=== PATIENT | male | born 1990 | race Caucasian/White ===

== ENCOUNTER 2018-06-22 08:30 | Outpatient (RCR) | payer BC, SELFPAY ==
--- NOTE | 2018-05-31 13:16 | HMH.OTOPEV ---
OT Inpatient Evaluation Rehab OT Outpatient Eval Start: 05/31/18 13:00 Freq: Status: Active Protocol: Document 05/31/18 13:01 TFRY (Rec: 05/31/18 13:15 TFRY [id number]) Electronically Signed By Ivory Alfred OT 05/31/18 13:01 Outpatient Therapy Subjective History Subjective History Patient seen this date for skilled occupational therapy evaluation for right small finger strain. Patient reported that he got his finger caught in a snake for a claim adjuster line one week ago. Seen by ortho on 05/30/18. Chief Complaint Pain Stiff Symptom Type Ache Sharp Symptoms Relieved By Rest/Positioning Symptoms Aggravated By Physical Activity Prior Functional Limitations None Current Functional Limitations Lifting Dressing Symptom Description Activity Dependent Level of pain today (0-10) 0 Pain scale - at its best (0-10) 0 Pain scale - at its worst (0-10) 10 Wrist/Hand Eval Finger Range of Motion Right Little Finger Finger ROM Limitations Pain Finger Metacarpophalangeal Flexion 45 Active Range of Motion (degrees) Finger Metacarpophalangeal Flexion 60 Passive Range of Motion (degrees) Finger Metacarpophalangeal Extension 0 Active Range of Motion (degrees) Finger Metacarpophalangeal Extension 0 Passive Range of Motion (degrees) Finger Proximal Interphalangeal Flexion 70 Active Range (degrees) Finger Proximal Interphalangeal Flexion 80 Passive Range (degrees) Finger Proximal Interphalangeal 0 Extension Active Range (degrees) Finger Proximal Interphalangeal 0 Extension Passive Range (degrees) Finger Distal Interphalangeal Flexion 55 Active Range of Motion (degrees) Finger Distal Interphalangeal Flexion 55 Passive Range Motion (degrees) Finger Distal Interphalangeal Extension 0 Active Range Motion (degrees) Finger Distal Interphalangeal Extension 0 Passive Range Motion (degrees) OT Outpatient Assessment Impairments Problems/Impairments Palpation Tenderness Impaired Range of Motion Impaired Lifting Impaired Dressing Impaired Work Activities Subjective C/O Pain Prognosis Rehab Potential Good Clinical Impression Consistent with Diagnosis Yes Short Term Goals Number of Weeks 2 Decreased Palpation Tenderness Yes: right little finger at
== END 2018-06-22 08:35 | disposition home or self-care (01) ==
LOC: OT 08:30
PROVIDERS: Visit Provider Orthopaedic Surgery
DX: S63.617A Unspecified sprain of left little finger, initial encounter (principal)
CPT/HCPCS: 97110; 97140; 97166

== ENCOUNTER → 2019-05-09 12:29 | Outpatient (CLI) | payer BC, SELFPAY | PROVIDERS: PCP Nurse Practitioner; Visit Provider Urology | DX: R00.2 Palpitations (principal); Z98.890 Other specified postprocedural states | CPT/HCPCS: 93306 ==

== ENCOUNTER 2019-11-14 20:24 | Emergency (ER) | payer BC, SELFPAY ==
[2019-11-14 20:33] VITALS: BP 149/97; PULSE 74; RESP 16; TEMP 36.6; O2SAT 96; BMI 27.1
--- NOTE | 2019-11-14 20:41 | CT_ITS ---
PROCEDURE: CT ABDOMEN PELVIS W CON CLINICAL INDICATION: dropped weight Blunt trauma with injury and pain, contusion/abrasion or hematoma following injury COMPARISON: No exams were available for comparison TECHNIQUE: IV Contrast: 75ML OPTIRAY 350 Oral Contrast None Axial images obtained with sagittal and coronal reformats. All CT scans at the facility use one or more dose reduction, viz: automated exposure control, ma/kV adjustment per patient size (including targeted exams where dose is matched to indication, i.e. head), or iterative reconstruction technique. FINDINGS: LOWER THORAX: No acute finding ABDOMEN & PELVIS: Status post cholecystectomy. The liver, spleen, adrenal glands, pancreas, and kidneys have an unremarkable appearance. No renal or ureteral calculi. There is faint increased density in the subcutaneous tissues of the anterior abdominal wall approximately 7 cm cephalad to the umbilicus and could be related to contusion. No intestinal obstruction or free air. No evidence of appendicitis. There is mild urinary bladder wall thickening which may be seen with incomplete distension, chronic outflow obstruction, or cystitis. Scattered small nodes are present in the mesenteries. No acute bony findings. Minimal amount of fluid noted in the pelvis. IMPRESSION: 1. There is mild urinary bladder wall thickening which may be seen with incomplete distension, chronic outflow obstruction, or cystitis. 2. Suspect subcutaneous soft tissue contusion anterior abdominal wall 3. Trace free fluid in the pelvis nonspecific Dictated by: Carlos Mcmullen MD 11/15/2019 06:29 Carlos Mcmullen MD in OV 11/15/2019 06:29
[2019-11-14 20:51] LABS: Basophils # 0.1 K/mm3 (0-0.2); Basophils % 0.9 % (0.1-2.0); Eosinophils # 0.2 K/mm3 (0.0-0.4); Eosinophils % 2.7 % (0.1-12.0); Hemoglobin 17.4 g/dL (14.1-18.0); Lymphocytes # 2.4 K/mm3 (0.7-4.5); Lymphocytes % 40.2 % (10-50); Mean Corpuscular HGB Conc 34.9 g/dL (31.8-35.4); Mean Corpuscular Hemoglobin 32.8 pg (27.0-31.2); Mean Corpuscular Volume 93.8 fl (80-94); Mean Platelet Volume 8.2 fl (7.4-10.4); Monocytes # 0.6 K/mm3 (0.1-1.0); Monocytes % 9.4 % (1.7-9.3); Neutrophils # 2.8 K/mm3 (1.8-7.8); Neutrophils % 46.8 % (37.0-80.0); Platelet Count 206 K/mm3 (142-424); Red Blood Count 5.33 M/mm3 (4.60-6.20); Red Cell Distribution Width 13.2 % (11.5-17.5)
[2019-11-14 21:01] LABS: Chloride 101 mmol/L (98-107); Sodium 140 mmol/L (136-145)
[2019-11-14 21:02] VITALS: BP 145/84; PULSE 63; RESP 17; O2SAT 97
[2019-11-14 21:02] LABS: Potassium 3.7 mmoL/L (3.5-5.1)
[2019-11-14 21:04] LABS: Alanine Aminotransferase 43 U/L (12-78); Albumin Level 4.6 g/dl (3.5-5.0); Albumin/Globulin Ratio 1.4 (1.1-1.8); Alkaline Phosphatase 67 U/L (38-126); Anion Gap 12.7 mEq/L (5-15); Aspartate Amino Transferase 47 U/L (17-59); Bilirubin,Total 0.5 mg/dl (0.2-1.3); Blood Urea Nitrogen 11 mg/dl (9-20); Calcium 10.1 mg/dl (8.4-10.2); Carbon Dioxide 30 mmol/L (22.0-30.0); Creatinine Clearance Estimated 117 mL/min (50-200); Estimated Glomerular Filt Rate 72 ml/min (>60); GFR (African American) 87 ML/MIN (>60); Globulin 3.2 g/dL (1.3-3.2); Glucose 105 mg/dl (74-100); Total Protein,Serum 7.8 g/dl (6.3-8.2)
[2019-11-14 21:47] VITALS: BP 136/85; PULSE 67; RESP 16; O2SAT 98
--- NOTE | 2019-11-14 22:12 | HMH.EDNVD ---
ED Disposition Clinical Impression: Abdominal pain Qualifiers: Abdominal location: epigastric Qualified Code(s): R10.13 - Epigastric pain Disposition: Home, Self-Care Condition on Discharge: Good Instructions: DI for Acute Abdomen Additional Instructions: call dr willams in am Referrals: Zo Argueta APRN [Primary Care Provider] - - Critical Care Critical Care Time: No Attestation: On 11/14/19, the high probability of a clinically significant, sudden or life threatening deterioration of the following system(s) required my full and direct attention, intervention and personal management. The time I documented below is in addition to time spent performing reported procedures but includes the following listed in this critical care notation. Medical Decision Making - Medical Records Medical records reviewed: Yes: I reviewed the patient's medical records. - Alex Inquiry Pt receiving controlled substance: No Vital Signs: 11/14/19 20:33 11/14/19 21:02 Temperature 97.9 F Temperature Source Oral Pulse Rate [Right Brachial] 74 63 Respiratory Rate 16 17 Blood Pressure [Right Arm] 149/97 H 145/84 H Blood Pressure Mean [Right Arm] 114 104 Blood Pressure Source [Right Arm] Automatic Cuff Automatic Cuff Blood Pressure Position [Right Arm] Sitting Sitting 02 Sat by Pulse Oximetry 96 97 Oxygen Delivery Method Room Air Room Air - Lab Data Lab results reviewed: Yes: I reviewed the patient's lab results. Lab Results 11/14/19 20:41: WBC 6.0, RBC 5.33, Hgb 17.4, Hct 50.0, MCV 93.8, MCH 32.8 H, MCHC 34.9, RDW 13.2, Plt Count 206, MPV 8.2, Neut % (Auto) 46.8, Lymph % (Auto) 40.2, Billings % (Auto) 9.4 H, Eos % (Auto) 2.7, Baso % (Auto) 0.9, Neut # (Auto) 2.8, Lymph # (Auto) 2.4, Billings # (Auto) 0.6, Eos # (Auto) 0.2, Baso # (Auto) 0.1 11/14/19 20:41: Sodium 140, Potassium 3.7, Chloride 101, Carbon Dioxide 30, Anion Gap 12.7, BUN 11, Creatinine 1.20, Estimated Creat Clear 117, Estimated GFR 72, Est GFR ( Amer) 87, Glucose 105 H, Calcium 10.1, Total Bilirubin 0.5, AST 47, ALT 43, Alkaline Phosphatase 67, Total Protein 7.8, Albumin 4.6, Globulin 3.2, Albumin/Globulin Ratio 1.4 Result diagrams: 11/14/19 20:41 11/14/19 20:41 Orders (Tests/Meds): ED MEDICATIONS Discontinued Medications Generic Name Dose Route Start Last Admin Trade Name Jaime PRN Reason Stop Dose Admin Ioversol 75 ml 11/14/19 21:44 11/14/19 21:46 Rad-Optiray 350 100ml Vial IV 11/14/19 21:45 75 ml ONCE ONE Administration Protocol Sodium Chloride 10 ml 11/14/19 21:44 11/14/19 21:46 Rad-Saline Flush 10ml Syringe IV 11/14/19 21:45 10 ml ONCE ONE Administration ORDERS Category Date Time Status CT abdomen pelvis w con Stat Cat Scan 11/14/19 20:41 Taken - CT Data CT Scan: Abdomen, Pelvis Time Received: 22:[address] Reviewed: Yes: I have viewed the radiologist's interpretation Preliminary Findings: Abnormal (see report ) - Physician Consults Physician Consulted: екатерина Reason -: Pt condition Nausea/Vomiting/Diarrhea HPI - General Chief complaint: Abdominal Pain Stated complaint: AO 0919 injured stomach Time Seen by Provider: 11/14/19 21:00 Mode of Arrival: Ambulatory Source of Information: Patient, Spouse, Medical Record Limitations: No Limitations Description of Symptoms (Recalled from ER Triage Doc. by RN): Patient reports he was lifting weights on wednesday and dropped 225lbs on his belly. Patient reports he has been ok since then but tonight after kicking around a soccer ball with his son, the pain came back and severe. Patient reports tenderness in the central part of his belly but denies any blood in his urine or stool. - History of Present Illness HPI Narrative: acute injury to upper abd as he dropped wt bar on abd - was worse today no fever and no vomiting - eating ok MD complaint: abdominal pain Onset (ago): day(s) Associated Abdominal Pain: Yes Location of pain: [facility]
[2019-11-14 22:39] VITALS: BP 149/91; PULSE 68; RESP 16; TEMP 36.8; O2SAT 98
[2019-11-14 23:09] LABS: Amylase 76 U/L (30-110); Lipase 91 U/L (23-300)
== END 2019-11-14 22:41 | disposition home or self-care (01) ==
PROVIDERS: Emergency Provider Emergency Medicine; PCP Nurse Practitioner
DX: S30.1XXA Contusion of abdominal wall, initial encounter (principal); W22.8XXA Striking against or struck by other objects, initial encounter; Y93.B3 Activity, free weights; Y92.89 Other specified places as the place of occurrence of the external cause; I10 Essential (primary) hypertension; R00.2 Palpitations; F17.210 Nicotine dependence, cigarettes, uncomplicated
CPT/HCPCS: 74177; 80053; 82150; 83690; 85025; 99283; Q9967

== ENCOUNTER 2020-08-28 17:25 | Emergency (ER) | payer BC, SELFPAY ==
[2020-08-28 17:25] VITALS: BP 140/90; PULSE 89; RESP 18; TEMP 37.1; O2SAT 95; BMI 27.8
--- NOTE | 2020-08-28 18:16 | HMH.EDUTC ---
[facility] Disposition Clinical Impression: Hematoma of lower limb Qualifiers: Encounter type: initial encounter Laterality: unspecified laterality Qualified Code(s): S80.10XA - Contusion of unspecified lower leg, initial encounter Open wound of leg Qualifiers: Encounter type: initial encounter Laterality: left Qualified Code(s): S81.802A - Unspecified open wound, left lower leg, initial encounter Disposition: Home, Self-Care Condition on Discharge: Good Instructions: DI for Hematoma (Bruise), DI for Open Laceration Additional Instructions: Keep the wound clean and dry. Keep a dressing on it if you are going to be getting it dirty. Watch the for signs of infection, such as worsening redness, swelling, drainage, fever. etc. Take tylenol or ibuprofen for pain. Follow up with your regular doctor. GO TO THE ER FOR ANY WORSENING SYMPTOMS OR CONCERNS. Prescriptions: Mupirocin [Bactroban 2% Ointment 22gm tube] 1 applicatio TP TID 7 Days #1 tube Transmission Status: Received by [facility] cephALEXin [cephALEXin 500mg capsule] 500 mg PO Q6H 10 Days #40 cap Transmission Status: Received by [facility] Referrals: Flo Bose MD [Primary Care Provider] - Time of Disposition: 18:28 Medical Decision Making - Medical Records Medical records reviewed: No: I reviewed the patient's medical records. - Alex Inquiry Pt receiving controlled substance: No Vital Signs: 08/28/20 17:25 08/28/20 18:18 Temperature 98.8 F 98.8 F Temperature Source Oral Pulse Rate 89 Pulse Rate [Right Brachial] 89 Respiratory Rate 18 18 Blood Pressure 140/90 Blood Pressure [Right Arm] 140/90 Blood Pressure Mean [Right Arm] 106 Blood Pressure Source [Right Arm] Automatic Cuff Blood Pressure Position [Right Arm] Sitting 02 Sat by Pulse Oximetry 95 Oxygen Delivery Method Room Air Orders (Tests/Meds): ORDERS Category Date Time Status Wound Culture and Gram Stain Stat Micro 08/28/20 18:[address] [facility] HPI - General Stated complaint: AO 08/16 injured L leg Time Seen by Provider: 08/28/20 17:40 Mode of Arrival: Ambulatory Source of Information: Patient Limitations: No Limitations Description of Symptoms (Recalled from Triage Doc. by RN): PATIENT REPORTS THAT HE HIT HIS LEFT LOWER LEG WITH GOLF CLUB APPROX 2 WEEKS AGO. HE STATES AREA AROUND THE WOUND BECAME SWOLLEN. YESTERDAY HIS WAS SQUEEZING ON THE AREA AND BROWN/OLD BLOOD AND BLOOD CLOTS STARTED DRAINING OUT OF OPEN AREA. OPEN AREA NOTED WITH SANGUINOUS DRAINAGE NOTED. HEENT Symptoms (Recalled from RN notes): No Resp Symptoms (Recalled from RN notes): No Skin Symptoms (Recalled from RN notes): Yes MS Symptoms (Recalled from RN notes): No Functional Status (Recalled from RN notes): WNL - History of Present Illness Provider Complaint: He accidentily hit himself on the left lower leg with a golf club around 2 weeks ago. He developed localized swelling and bruising in that area. He also recieved a small laceration at the site from the golf club. He states that earlier today the scab came off the laceration and some dark maroon blood with some clots came out of it. - Related Data Home Medications Medication Instructions Recorded Confirmed Omeprazole 40 mg PO DAILY 08/28/20 08/28/20 bisoproloL fumarate [Bisoprolol 5 mg PO DAILY 08/28/20 08/28/20 Fumarate] Previous Rx's Medication Instructions Recorded Mupirocin [Bactroban 2% Ointment 1 applicatio TP TID 7 Days #1 tube 08/28/20 22gm tube] cephALEXin [cephALEXin 500mg 500 mg PO Q6H 10 Days #40 cap 08/28/20 capsule] Allergies Allergy/AdvReac Type Severity Reaction Status Date / Time No Known Allergies Allergy Verified 05/01/20 10:55 - Worker's Comp Is this a Worker's Comp case?: No [facility] History - Hepatitis A Screen Drug use history?: No High risk sexual behaviors?: No History of sexually transmitted infection?: No Currently employed?: No C
[2020-08-28 18:18] VITALS: BP 140/90; PULSE 89; RESP 18; TEMP 37.1; O2SAT 95
--- NOTE | 2020-08-28 18:23 | PC.NURSE ---
NEOSPORIN, NON-STICK DRESSING, GAUZE, AND JEANNE WRAP APPLIED TO OPEN AREA ON LEFT LOWER LEG AT THIS TIME
== END 2020-08-28 18:36 | disposition home or self-care (01) ==
PROVIDERS: Emergency Provider Nurse Practitioner Family; PCP Family Medicine
DX: S81.802A Unspecified open wound, left lower leg, initial encounter (principal); W22.8XXA Striking against or struck by other objects, initial encounter; Y92.89 Other specified places as the place of occurrence of the external cause
CPT/HCPCS: 87070; 87077; 87186; 87205; 99202; G0463

== ENCOUNTER 2020-10-19 09:09 | Emergency (ER) | payer BC, SELFPAY ==
[2020-10-19 09:37] VITALS: BP 132/85; PULSE 63; RESP 18; TEMP 36.9; O2SAT 96; BMI 27.8
[2020-10-19 09:48] VITALS: BP 128/85; PULSE 72; RESP 18; TEMP 36.9
--- NOTE | 2020-10-19 10:00 | HMH.EDUTC ---
[facility] Disposition Clinical Impression: Viral syndrome, Exposure to COVID-19 virus Disposition: Home, Self-Care Condition on Discharge: Good Instructions: Preventing the Spread of Coronavirus Discharge Instructions Additional Instructions: Drink plenty of fluids. Take tylenol or ibuprofen for pain or fever. Follow up with your regular doctor. GO TO THE ER FOR ANY WORSENING SYMPTOMS Quarantine until you know the results of your covid-19 test. If it is positive, the health department should call you and give you further instructions about your length of Quarantine and other things. Notify your school or workplace of your results and follow their instructions regarding return to work/school. Prescriptions: Ondansetron [Zofran 4mg ODT] 4 mg PO Q8HP PRN #20 tab.rapdis PRN Reason: Nausea Transmission Status: Received by [facility] Benzonatate [Tessalon Perle 100mg Cap] 100 mg PO TIDP PRN #30 cap PRN Reason: Cough Transmission Status: Received by [facility] Referrals: Flo Bose MD [Primary Care Provider] - Time of Disposition: 10:04 Medical Decision Making - Medical Records Medical records reviewed: No: I reviewed the patient's medical records. - Alex Inquiry Pt receiving controlled substance: No Vital Signs: 10/19/20 09:37 10/19/20 09:48 Temperature 98.5 F 98.5 F Temperature Source Oral Pulse Rate 72 Pulse Rate [Left] 63 Respiratory Rate 18 18 Blood Pressure 128/85 Blood Pressure [Right Arm] 132/85 Blood Pressure Mean [Right Arm] 100 02 Sat by Pulse Oximetry 96 Orders (Tests/Meds): ORDERS Category Date Time Status Covid-19 Nasal PCR ([facility]) Routine Lab 10/19/20 09:43 Received [facility] HPI - General Stated complaint: covid test Time Seen by Provider: 10/19/20 10:01 Mode of Arrival: Ambulatory Source of Information: Patient Limitations: No Limitations Description of Symptoms (Recalled from Triage Doc. by RN): pt c/o a SARABIA, cough and sore throat. HEENT Symptoms (Recalled from RN notes): Yes (SARABIA and sore throat) Resp Symptoms (Recalled from RN notes): Yes (cough) Skin Symptoms (Recalled from RN notes): No MS Symptoms (Recalled from RN notes): No Functional Status (Recalled from RN notes): na - History of Present Illness Provider Complaint: He has thought that he has had covid-19 for the past 1 week, but he has not been tested. - Related Data Home Medications Medication Instructions Recorded Confirmed Omeprazole 40 mg PO DAILY 08/28/20 08/28/20 bisoproloL fumarate [Bisoprolol 5 mg PO DAILY 08/28/20 08/28/20 Fumarate] Previous Rx's Medication Instructions Recorded Mupirocin [Bactroban 2% Ointment 1 applicatio TP TID 7 Days #1 tube 08/28/20 22gm tube] cephALEXin [cephALEXin 500mg 500 mg PO Q6H 10 Days #40 cap 08/28/20 capsule] Benzonatate [Tessalon Perle 100mg 100 mg PO TIDP PRN #30 cap 10/19/20 Cap] Ondansetron [Zofran 4mg ODT] 4 mg PO Q8HP PRN #20 tab.rapdis 10/19/20 Allergies Allergy/AdvReac Type Severity Reaction Status Date / Time No Known Allergies Allergy Verified 05/01/20 10:55 - Worker's Comp Is this a Worker's Comp case?: No [facility] History - Hepatitis A Screen Drug use history?: No High risk sexual behaviors?: No History of sexually transmitted infection?: No Currently employed?: No Childcare worker?: No Do you have indoor plumbing?: Yes Do you have electricity?: Yes Attestation statement:: This patient has been screened for Hepatitis A risk factors. I have reviewed the patient's past medical history: Yes Medical History: Reports:: Hypertension, Palpitations Other Surgeries: Yes: No Previous Surgery, Other Comment: heart ablation - Social History Smoking Status: Current every day smoker Tobacco Type: smokeless tobacco # Packs/Day (cigarettes): 0 Alcohol Intake: never Alcohol Intake Frequency:: a few times a week Occupational Status: other Family Hx:: No significant famil
[2020-10-19 21:11] LABS: UTC Strep Screen (Rapid) Negative (Negative)
== END 2020-10-19 10:07 | disposition home or self-care (01) ==
PROVIDERS: Emergency Provider Nurse Practitioner Family; PCP Family Medicine
DX: B34.9 Viral infection, unspecified (principal); Z20.822 Contact with and (suspected) exposure to COVID-19; I10 Essential (primary) hypertension; F17.210 Nicotine dependence, cigarettes, uncomplicated
CPT/HCPCS: 87880; 99203; G0463; U0003

== ENCOUNTER 2021-05-31 21:10 | Emergency (ER) | payer OTHER, SELFPAY ==
[2021-05-31 21:11] VITALS: BP 120/72; PULSE 89; RESP 16; TEMP 37.1; O2SAT 99; BMI 28.5
--- NOTE | 2021-05-31 22:05 | XR_ITS ---
PROCEDURE INFORMATION: Exam: XR Right Ankle Exam date and time: 05/31/2021 10:14 PM Age: 30 years old Clinical indication: Injury or trauma; Other: Rolled ankle playing basketball; Sprain or strain; Right; Additional info: Right ankle pain, rolled ankle playing basketball swelling lateral ankle TECHNIQUE: Imaging protocol: XR Right ankle. Views: 3 or more views. COMPARISON: No relevant prior studies available. FINDINGS: Bones/joints: Normal. The ankle mortise is maintained. Soft tissues: Soft tissue swelling is noted over the lateral malleolus. IMPRESSION: Lateral soft tissue swelling without acute fracture.
--- NOTE | 2021-05-31 22:09 | HMH.EDGENADL ---
ED Disposition Clinical Impression: Ankle sprain and strain Disposition: Home, Self-Care Condition on Discharge: Good Instructions: Ankle Sprain, How To Perform RICE (Rest, Ice, Compress, Elevate) Additional Instructions: Elevate your foot when you are resting. You can use ice / jeanne bandage for the swelling. Tylenol / ibuprofen for pain. Return if you have worsening symptoms or concerns. Referrals: Flo Bose MD [Primary Care Provider] - - Critical Care Critical Care Time: No Attestation: On 05/31/21, the high probability of a clinically significant, sudden or life threatening deterioration of the following system(s) required my full and direct attention, intervention and personal management. The time I documented below is in addition to time spent performing reported procedures but includes the following listed in this critical care notation. Medical Decision Making - Alex Inquiry Pt receiving controlled substance: No Vital Signs: 05/31/21 21:11 Temperature 98.7 F Temperature Source Oral Pulse Rate [Left Radial] 89 Respiratory Rate 16 Blood Pressure [Right Arm] 120/72 Blood Pressure Mean [Right Arm] 88 02 Sat by Pulse Oximetry 99 Oxygen Delivery Method Room Air Orders (Tests/Meds): ED MEDICATIONS Discontinued Medications Generic Name Dose Route Start Last Admin Trade Name Freq PRN Reason Stop Dose Admin Ibuprofen 600 mg 05/31/21 22:06 05/31/21 22:18 Ibuprofen 600 Mg Tablet PO 05/31/21 22:07 600 mg ONCE ONE Administration ORDERS Category Date Time Status Ankle XR -Right minimum 3 Views [XR ankle RT min 3V] Exams 05/31/21 22:05 Taken Stat Medical Decision Narrative: The patient is a 30 year old male who presents with right ankle pain after he rolled it. On exam he has right ankle swelling over the lateral malleolus. He has no midfoot tenderness. He was given 600 mg ibuprofen PO. X-ray of the right ankle was obtained and was unremarkable. Likely with right ankle sprain. Discussed RICE and home care with him. He is agreeble. JEANNE bandage applied. Discharged home. General Adult HPI - General Stated complaint: rt ankle injury Time Seen by Provider: 05/31/21 22:10 - History of Present Illness HPI narrative: The patient is a 30 year old male who presents to the ED with right ankle pain. The patient states a few hours ago he rolled his right ankle. He has been able to bear weight on it with some pain. He noticed the swelling so he came in. He denies any other injury. He did not take anything to the pain. - Related Data Home Medications Medication Instructions Recorded Confirmed No Known Home Medications 05/31/21 05/31/21 Allergies Allergy/AdvReac Type Severity Reaction Status Date / Time No Known Allergies Allergy Verified 05/01/20 10:55 [facility] History - Hepatitis A Screen Attestation statement:: This patient has been screened for Hepatitis A risk factors. Medical History: Reports:: Hypertension, Palpitations Other Surgeries: Yes: No Previous Surgery, Other Comment: heart ablation - Social History Smoking Status: Current every day smoker Tobacco Type: smokeless tobacco # Packs/Day (cigarettes): 0 Alcohol Intake: never Alcohol Intake Frequency:: a few times a week Occupational Status: other Family Hx:: No significant family history ROS Obtained: Yes All systems reviewed & no additional complaints Physical Exam - General General appearance: alert, in no apparent distress - Head Head exam: atraumatic, normocephalic, normal inspection - Eye Eye exam: Present: normal appearance, EOMI - Neck Neck exam: Present: normal inspection - Chest Chest inspection: Present: normal inspection, symmetric chest wall rise - Respiratory Respiratory exam: Absent: respiratory distress - Cardiovascular Cardiovascular exam: Present: regular rate - Abdominal Exam Abdominal exam: Present: soft - Extremities Exam Extremities exam: Pre
--- NOTE | 2021-05-31 23:13 | PC.NURSE ---
Applied JEANNE wrap to pt R ankle
[2021-05-31 23:44] VITALS: BP 120/88; PULSE 83; RESP 18; TEMP 36.6; O2SAT 98
== END 2021-05-31 23:46 | disposition home or self-care (01) ==
PROVIDERS: Emergency Provider Emergency Medicine; PCP Family Medicine
DX: S93.401A Sprain of unspecified ligament of right ankle, initial encounter (principal); R00.2 Palpitations; I10 Essential (primary) hypertension; F17.290 Nicotine dependence, other tobacco product, uncomplicated; W50.2XXA Accidental twist by another person, initial encounter
CPT/HCPCS: 73610; 99283

== ENCOUNTER 2021-09-28 12:27 | Emergency (ER) | payer OTHER, SELFPAY ==
[2021-09-28 12:30] VITALS: BP 158/95; PULSE 115; RESP 22; TEMP 37.8; O2SAT 95; BMI 28.5
[2021-09-28 12:40] VITALS: BP 158/95; PULSE 115; RESP 22; TEMP 37.8; O2SAT 95; BMI 28.4
[2021-09-28 12:50] LABS: Adenovirus,PCR Not Detected (NotDetected); Bordetella Pertussis Not Detected (NotDetected); Chlamydophila Pneumoniae, PCR Not Detected (NotDetected); Coronavirus 19, PCR Not Detected (NotDetected); Coronavirus 229E Not Detected (NotDetected); Coronavirus NL63 Not Detected (NotDetected); Coronavirus OC43 Not Detected (NotDetected); Coronovirus HKU1,PCR Not Detected (NotDetected); Human Metapneumovirus Not Detected (NotDetected); Influenza A, PCR Not Detected (NotDetected); Influenza AH1, 2009 Not Detected (NotDetected); Influenza AH1, PCR Not Detected (NotDetected); Influenza AH3,PCR Not Detected (NotDetected); Influenza B, PCR Not Detected (NotDetected); Mycoplasma Pneumoniae, PCR Not Detected (NotDetected); Parainfluenza 1, PCR Not Detected (NotDetected); Parainfluenza 2, PCR Not Detected (NotDetected); Parainfluenza 3, PCR Not Detected (NotDetected); Parainfluenza 4, PCR Not Detected (NotDetected); Respiratory Syncytial Virus Not Detected (NotDetected); Rhinovirus/Enterovirus Not Detected (NotDetected)
--- NOTE | 2021-09-28 13:28 | HMH.EDUTC ---
[facility] Disposition Clinical Impression: URI (upper respiratory infection) Qualifiers: URI type: unspecified URI Qualified Code(s): J06.9 - Acute upper respiratory infection, unspecified Disposition: Home, Self-Care Condition on Discharge: Good Instructions: Sinusitis, DI for Sinusitis, DI for Cough -- Adult, DI for Fever (Symptom) -- Adult Additional Instructions: ? Start antibiotic today. Be sure to complete entire prescription even if feeling better ? Monitor temp. Tylenol every 4 hours as needed and / or ibuprofen every 6 hours as needed ( As long as your primary care physician has told you that it ok to take both. For fever/aches/pains ER if no less than 101 despite Tylenol or Motrin ? Humidifier/vaporizer or hot steamy shower ? Inhaler every 4-6 hours as needed like we discussed. If unsure how to use it, ask pharmacist to demonstrate how. Should help open airways and improve cough, wheezing, and shortness of breath ? Mucinex during the day for your cough and cough suppressant only at night. Be sure to drink lots of water. Insurance may not cover a prescriptions for mucinex. Might be cheaper to get 400mg tablets and take 2 tablet in the morning, mid-day and evening with lots of water. *Start steroid today. Helps with inflammation therefore, cough and wheezing. Follow directions on the package. Reviewed side effects. Patient reports taking them before. Follow up IMMEDIATELY for new or worsening of symptoms OR no noticeable improvement over the next 48-72 hours. 911 immediately for any life threatening symptoms such as chest pain or difficulty breathing Prescriptions: Benzonatate [Benzonatate 100mg cap] 100 mg PO Q8HP PRN #30 cap PRN Reason: Cough Transmission Status: Pending to [id number] methylPREDNISolone [Medrol 4mg tab] 4 mg PO DIRECTED #21 tab Transmission Status: Received by [id number] Azithromycin [Z-Carlos Enrique 250mg Tab] 250 mg PO DIRECTED #6 tab Transmission Status: Received by [id number] Referrals: Flo Bose MD [Primary Care Provider] - As needed Forms: Work/School Release Time of Disposition: 13:57 Medical Decision Making - Alex Inquiry Pt receiving controlled substance: No Alex was queried for this patient: No Vital Signs: 09/28/21 12:30 09/28/21 12:40 Temperature 100.0 F H 100.0 F H Temperature Source Oral Oral Pulse Rate [Right Brachial] 115 H 115 H Respiratory Rate Blood Pressure [Right Arm] 158/95 H 158/95 H Blood Pressure Mean [Right Arm] 116 116 Blood Pressure Source [Right Arm] Automatic Cuff Automatic Cuff Blood Pressure Position [Right Arm] Sitting Sitting 02 Sat by Pulse Oximetry 95 95 Oxygen Delivery Method Room Air Room Air Orders (Tests/Meds): ED MEDICATIONS Discontinued Medications Generic Name Dose Route Start Last Admin Trade Name Freq PRN Reason Stop Dose Admin Ceftriaxone Sodium 1 gm 09/28/21 13:39 Ceftriaxone 1gm Vial IM 09/28/21 13:40 ONCE ONE Lidocaine HCl 0 ml 09/28/21 13:39 Lidocaine 1% 5ml Pf Vial IM 09/28/21 13:40 ONCE ONE ORDERS Category Date Time Status Full Resp Panel w/COVID ([facility]) Routine Lab 09/28/21 12:42 Received Medical Decision Narrative: Discussed CXR patient declined at this time [facility] HPI - General Stated complaint: body aches, h/a, fever/chills, dizzy Time Seen by Provider: 09/28/21 13:28 Mode of Arrival: Ambulatory Source of Information: Patient Limitations: No Limitations Description of Symptoms (Recalled from Triage Doc. by RN): PATIENT C/O HEADACHE, BODY ACHES, CHILLS, FEVER, SOA, AND PRODUCTIVE COUGH THAT STARTED THIS MORNING HEENT Symptoms (Recalled from RN notes): Yes Resp Symptoms (Recalled from RN notes): Yes Skin Symptoms (Recalled from RN notes): No MS Symptoms (Recalled from RN notes): No Functional Status (Recalled from RN notes): WNL - History of Present Illness Provider Complaint: Patient states that he hasnt been feeling well States he
[2021-09-28 13:50] VITALS: BP 158/95; PULSE 115; RESP 22; TEMP 37.8; O2SAT 95
== END 2021-09-28 14:03 | disposition home or self-care (01) ==
LOC: ER 12:39 → UTC 12:39
PROVIDERS: Emergency Provider Nurse Practitioner; PCP Family Medicine
DX: J06.9 Acute upper respiratory infection, unspecified (principal); F17.200 Nicotine dependence, unspecified, uncomplicated; Z20.822 Contact with and (suspected) exposure to COVID-19
CPT/HCPCS: 87581; 87632; 87798; 99212; C9803; G0463; J0696; U0003; U0005

== ENCOUNTER 2021-10-11 12:48 | Emergency (ER) | payer OTHER, SELFPAY ==
[2021-10-11 12:55] VITALS: BP 142/86; PULSE 120; RESP 19; TEMP 38.8; O2SAT 99; BMI 25.5
--- NOTE | 2021-10-11 13:03 | HMH.EDUTC ---
[facility] Disposition Clinical Impression: URI (upper respiratory infection) Qualifiers: URI type: unspecified URI Qualified Code(s): J06.9 - Acute upper respiratory infection, unspecified Disposition: Home, Self-Care Condition on Discharge: Good Instructions: DI for Sinusitis Additional Instructions: Start antibiotic patient to take as ordered for a full length of time even if you feel better. Sinus infections do not get better overnight. It may take 2-3 days to notice much improvement so be sure to use conservative measures as discussed for symptoms. Flonase 1 spray each nostril daily to help with nasal congestion, sinus and ear pressure/information Increase fluids Humidifier/vaporizer as needed Tylenol and ibuprofen as needed for fever or pain. If symptoms do not improve or get worse return or be seen in the ER Follow-up with primary care this week Prescriptions: Azithromycin [Zithromax 250mg tab] 250 mg PO DIRECTED #6 tab Transmission Status: Received by [id number] Referrals: Flo Bose MD [Primary Care Provider] - Time of Disposition: 13:23 Medical Decision Making - Alex Inquiry Pt receiving controlled substance: No Vital Signs: 10/11/21 12:55 Temperature 101.9 F H Temperature Source Oral Pulse Rate [Right Brachial] 120 H Respiratory Rate 19 Blood Pressure [Right Arm] 142/86 H Blood Pressure Mean [Right Arm] 104 Blood Pressure Source [Right Arm] Automatic Cuff Blood Pressure Position [Right Arm] Sitting 02 Sat by Pulse Oximetry 99 Orders (Tests/Meds): ED MEDICATIONS Discontinued Medications Generic Name Dose Route Start Last Admin Trade Name Freq PRN Reason Stop Dose Admin Ceftriaxone Sodium 1 gm 10/11/21 13:07 Ceftriaxone 1gm Vial IM 10/11/21 13:08 ONCE ONE Lidocaine HCl 0 ml 10/11/21 13:07 Lidocaine 1% 5ml Pf Vial IM 10/11/21 13:08 ONCE ONE ORDERS Category Date Time Status Full Resp Panel w/COVID ([facility]) Routine Lab 10/11/21 13:08 Received [facility] HPI - General Chief complaint: Urgent Treatment Center Stated complaint: Drainage, fever, chills, headache Time Seen by Provider: 10/11/21 13:03 Mode of Arrival: Ambulatory Source of Information: Patient Limitations: No Limitations Description of Symptoms (Recalled from Triage Doc. by RN): PT C/O BODY ACHES, CHILLS, COUGH, CHEST CONGESTION, AND HEADACHE THAT STARTED 2 DAYS AGO HEENT Symptoms (Recalled from RN notes): Yes Resp Symptoms (Recalled from RN notes): Yes Skin Symptoms (Recalled from RN notes): No MS Symptoms (Recalled from RN notes): No Functional Status (Recalled from RN notes): WNL - History of Present Illness Provider Complaint: 30 yr old male presnets for cough,sore throat,body aches and fever for 2 days. pt stats the last time he had this he developed pneumonia.States he recieved a rochepin shot and felt better the next day. - Related Data Previous Rx's Medication Instructions Recorded bisoprolol fumarate 5 mg tablet 5 mg PO QDAY #30 tab 09/17/21 omeprazole 40 mg capsule,delayed See Rx Instructions .ROUTE 09/17/21 release .COMPLEX #90 cap Azithromycin [Z-Carlos Enrique 250mg Tab] 250 mg PO DIRECTED #6 tab 09/28/21 Benzonatate [Benzonatate 100mg 100 mg PO Q8HP PRN #30 cap 09/28/21 cap] methylPREDNISolone [Medrol 4mg 4 mg PO DIRECTED #21 tab 09/28/21 tab] Azithromycin [Zithromax 250mg 250 mg PO DIRECTED #6 tab 10/11/21 tab] Allergies Allergy/AdvReac Type Severity Reaction Status Date / Time No Known Allergies Allergy Verified 05/01/20 10:55 - Worker's Comp Is this a Worker's Comp case?: No [facility] History - Hepatitis A Screen Attestation statement:: This patient has been screened for Hepatitis A risk factors. I have reviewed the patient's past medical history: Yes Medical History: Reports:: Hypertension, Palpitations Other Surgeries: Yes: No Previous Surgery, Other Comment: heart ablation - Social History Smoking Status: Ernestina
[2021-10-11 13:14] LABS: Adenovirus,PCR Not Detected (NotDetected); Bordetella Pertussis Not Detected (NotDetected); Chlamydophila Pneumoniae, PCR Not Detected (NotDetected); Coronavirus 229E Not Detected (NotDetected); Coronavirus NL63 Not Detected (NotDetected); Coronavirus OC43 Not Detected (NotDetected); Coronovirus HKU1,PCR Not Detected (NotDetected); Human Metapneumovirus Not Detected (NotDetected); Influenza A, PCR Not Detected (NotDetected); Influenza AH1, 2009 Not Detected (NotDetected); Influenza AH1, PCR Not Detected (NotDetected); Influenza AH3,PCR Not Detected (NotDetected); Influenza B, PCR Not Detected (NotDetected); Mycoplasma Pneumoniae, PCR Not Detected (NotDetected); Parainfluenza 1, PCR Not Detected (NotDetected); Parainfluenza 2, PCR Not Detected (NotDetected); Parainfluenza 3, PCR Not Detected (NotDetected); Parainfluenza 4, PCR Not Detected (NotDetected); Respiratory Syncytial Virus Not Detected (NotDetected); Rhinovirus/Enterovirus Not Detected (NotDetected)
[2021-10-11 13:25] VITALS: BP 142/86; PULSE 120; RESP 19; TEMP 38.8; O2SAT 99
[2021-10-11 15:09] LABS: Coronavirus 19, PCR Detected (NotDetected)
== END 2021-10-11 13:32 | disposition home or self-care (01) ==
PROVIDERS: Emergency Provider Nurse Practitioner Family; PCP Family Medicine
DX: U07.1 COVID-19 (principal); R50.9 Fever, unspecified; R51.9 Headache, unspecified
CPT/HCPCS: 87581; 87632; 87798; 96372; 99212; C9803; G0463; J0696; U0003; U0005

== ENCOUNTER 2022-10-15 14:15 | Emergency (ER) | payer OTHER, SELFPAY ==
[2022-10-15 14:20] VITALS: BP 123/84; PULSE 77; RESP 18; TEMP 36.7; O2SAT 95; BMI 28.5
--- NOTE | 2022-10-15 14:40 | EXP.UTC ---
Discharge Plan Disposition Patient Disposition: Home, Self-Care Condition: Good Prescriptions Prescriptions: No Action bisoprolol fumarate 5 mg tablet 5 mg PO QDAY Qty: 90 3RF omeprazole 40 mg capsule,delayed release(DR/EC) 40 mg PO DAILY Qty: 90 3RF azithromycin 250 MG tablet 250 mg PO DIRECTED Qty: 6 0RF Rx Instructions: Take two (2) tablets on day #1, then one (1) tablet day #2 thru #5 azithromycin 250 MG tablet 250 mg PO DIRECTED Qty: 6 0RF Rx Instructions: Take two (2) tablets on day #1, then one (1) tablet day #2 thru #5 methylprednisolone 4 MG tablet 4 mg PO DIRECTED Qty: 21 0RF Rx Instructions: Take as directed on package instructions benzonatate 100 MG capsule 100 mg PO Q8HP PRN (Reason: Cough) Qty: 30 0RF Referrals Follow up/Referrals: Flo Bose MD [Primary Care Provider] - See instructions Activity Restrictions/Add. Instructions Additional Instructions/Restrictions: *Monitor Temp, Over the counter Motrin or Tylenol as directed/as needed Tylenol every 4 hours and Motrin every 6 hours (as long as your family doctor has told you that you can take it) for fever or pain. and straight to ER if unable to lower temp less than 101.0 after medication given *Warm salt water gargles may help to soothe the throat *Throat Lozenges? *Warm fluids like tea with honey may help to soothe the throat? *Sleep elevated *Humidifier/Vaporizer *Flonase 2 sprays in each nostril daily but be aware that it may take 2-3 days before you notice improvement *Bromfed may cause drowsiness. Know how it effects you (your child) before driving, caring for small child, or sending your child to school. Not other antihistamines/allergy medications while taking bromfed Your throat swab was sent for culture. Those results are typically sent to your primary care. Be sure to follow up in 2-3 days with your family doctor/primary care physician if no improvement so they can review those result and treat if necessary. If you don?t have a primary care doctor, I recommend you get one but in the mean time, you will have to return to a walk in clinic Follow up IMMEDIATELY for new or worsening symptoms or no Noticeable improvement over the next 48-72 hours. 911 for difficulty breathing or swallowing You were tested for today for COVID19 your test result should be back in the next 24-48 hours you may check your results on the [facility] My Health Portal Clinical Impressions Clinical Impression: Exposure to COVID-19 virus Instructions Patient Instructions: DI for COVID-19 (Suspected or Confirmed ), Preventing the Spread of Coronavirus Discharge Instructions Discharge ED Provider: Naida Du [facility] HPI General Stated complaint: congestion, wants to get covid test Mode of Arrival: Ambulatory Source of Information: Patient Limitations: No Limitations Time Seen by Provider: 10/15/22 14:40 Description of Symptoms (Recalled from Triage Doc. by RN): PATIENT C/O SINUS PRESSURE AND CONGESTION, RECENTLY EXPOSED TO COVID HEENT Symptoms (Recalled from RN notes): Yes Resp Symptoms (Recalled from RN notes): No Skin Symptoms (Recalled from RN notes): No MS Symptoms (Recalled from RN notes): No Functional Status (Recalled from RN notes): WNL History of Present Illness Provider Complaint: Patient states that he started having some nasal congestion that just started however does have allergies and drainage is clear States that he has had 2 coworkers test positive for COVID today and wanted to get tested just to make sure Related Data Previous Rx's Medication Instructions Recorded azithromycin 250 mg tablet 250 mg PO DIRECTED #6 tabs 09/28/21 benzonatate 100 mg capsule 100 mg PO Q8HP PRN Cough #30 caps 09/28/21 methylprednisolone 4 mg tablet 4 mg PO DIRECTED #21 tabs 09/28/21 azithromycin 250 mg tablet 250 mg PO DIRECTED #6 tabs 10/11/21 bisoprolol fumarate 5
[2022-10-15 14:41] VITALS: BP 123/84; PULSE 77; RESP 18; TEMP 36.7; O2SAT 95
[2022-10-15 15:28] LABS: Coronavirus 19, PCR Not Detected (NotDetected); Influenza A, PCR Not Detected (NotDetected); Influenza B, PCR Not Detected (NotDetected)
== END 2022-10-15 14:45 | disposition home or self-care (01) ==
PROVIDERS: Emergency Provider Nurse Practitioner; PCP Family Medicine
DX: R09.81 Nasal congestion (principal); Z20.822 Contact with and (suspected) exposure to COVID-19
CPT/HCPCS: 87636; 99212; 99213; G0463

== ENCOUNTER → 2022-11-25 09:13 | Outpatient (CLI) | payer OTHER, SELFPAY ==
--- NOTE | 2022-11-25 09:19 | XR_ITS ---
FINAL REPORT CLINICAL HISTORY: left knee pain COMPARISON: None FINDINGS: Three views of the left knee reveal no evidence of fracture or dislocation. The bony alignment is normal. There is mild degenerative change. There is no evidence of joint effusion. No localized soft tissue abnormality is seen. IMPRESSION: Mild degenerative change without acute abnormality identified. Reviewed, Interpreted and Dictated by Adrian Lobato III, MD Transcribed by Keily Morris Authenticated and [facility]
== END ==
PROVIDERS: PCP Family Medicine; Visit Provider Orthopaedic Surgery
DX: M25.562 Pain in left knee (principal)
CPT/HCPCS: 73562

== ENCOUNTER → 2022-12-15 13:23 | Outpatient (CLI) | payer OTHER, SELFPAY ==
--- NOTE | 2022-12-15 13:24 | MR_ITS ---
FINAL REPORT CLINICAL HISTORY: lt knee pain FINDINGS: Multiplanar MR imaging of the right knee was performed without contrast. There is a tear of the posterior horn of the medial meniscus. There is a partial tear of the posterior root of the lateral meniscus. There is a chronic tear of the anterior cruciate ligament. The posterior cruciate ligament is intact The medial collateral ligament and lateral ligamentous complex are intact. The patellar and quadriceps tendons are intact. There is no evidence of fracture. There are moderate degenerative changes with mild chondromalacia. A small joint effusion is seen. The musculature is intact. No soft tissue mass or cyst is identified. IMPRESSION: Tear of the posterior horn of the medial meniscus with a partial tear of the posterior root of the lateral meniscus. Chronic tear of the ACL. Moderate degenerative change with mild chondromalacia. Reviewed, Interpreted and Dictated by Adrian Lobato III, MD Transcribed by Dennis Short Authenticated and [facility]
== END ==
PROVIDERS: PCP Family Medicine; Visit Provider Orthopaedic Surgery
DX: M25.562 Pain in left knee (principal)
CPT/HCPCS: 73721

== ENCOUNTER 2023-01-07 13:25 | Emergency (ER) | payer OTHER, SELFPAY ==
[2023-01-07 13:35] VITALS: BP 121/79; PULSE 64; RESP 20; TEMP 37.1; O2SAT 95; BMI 27.1
[2023-01-07 13:40] LABS: Influenza A, PCR Not Detected (NotDetected); Influenza B, PCR Not Detected (NotDetected)
--- NOTE | 2023-01-07 13:47 | EXP.UTC ---
Discharge Plan Disposition Patient Disposition: Home, Self-Care Condition: Good Prescriptions Prescriptions: No Action bisoprolol fumarate 5 mg tablet 5 mg PO QDAY Qty: 90 3RF omeprazole 40 mg capsule,delayed release(DR/EC) 40 mg PO DAILY Qty: 90 3RF Referrals Follow up/Referrals: Flo Bose MD [Primary Care Provider] - See instructions Activity Restrictions/Add. Instructions Additional Instructions/Restrictions: *Monitor Temp, Over the counter Motrin or Tylenol as directed/as needed Tylenol every 4 hours and Motrin every 6 hours (as long as your family doctor has told you that you can take it) for fever or pain. and straight to ER if unable to lower temp less than 101.0 after medication given *Warm salt water gargles may help to soothe the throat *Throat Lozenges? *Warm fluids like tea with honey may help to soothe the throat? 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 911 for difficulty breathing or swallowing Clinical Impressions Clinical Impression: COVID-19 Instructions Patient Instructions: DI for COVID-19 (Suspected or Confirmed ) Discharge ED Provider: Naida Du [facility] General Stated complaint: cough, body aches, sore throat, chest congestion Mode of Arrival: Ambulatory Source of Information: Patient Limitations: No Limitations Time Seen by Provider: 01/07/23 13:49 Description of Symptoms (Recalled from Triage Doc. 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 States that he is feeling a little better today but wanted to get checked Related Data Previous Rx's Medication Instructions Recorded bisoprolol fumarate 5 mg tablet 5 mg PO QDAY #90 tabs 10/09/22 omeprazole 40 mg capsule,delayed 40 mg PO DAILY #90 caps 10/09/22 release Allergies Allergy/AdvReac Type Severity Reaction Status Date / Time No Known Allergies Allergy Verified 12/23/22 14:35 Worker's Comp Is this a Worker's Comp case?: No PFSH PFS Disclaimer: The information contained in this section may have been updated after the patient was seen, as this information can be updated by other users. Medical History (Updated 01/07/23 @ 14:10 by Naida Du APRN) Asthma Hyperlipidemia Hypertension Surgical History (Updated 01/07/23 @ 13:48 by Cesia Bruce RN) H/O cardiac radiofrequency ablation History of cholecystectomy Social History Smoking Status: Never smoker alcohol intake: never current occupational status: employed Travel in the last 8 weeks: None household members: family ROS Obtained: Yes All systems reviewed & no additional complaints except as documented and Yes Systems reviewed as appropriate & no additional complaints except as documented Constitutional Constitutional: Reports system reviewed and no additional complaints, except as documented, Reports as per HPI, Reports body ache, Reports chills, Reports fever(s) and Reports headache(s) Eyes Eyes: Reports system reviewed and no additional complaints, except as documented and Reports as per HPI ENT Ears, Nose, Mouth, and Throat: Reports system reviewed and no additional complaints, except as documented, Reports
[2023-01-07 14:01] LABS: Coronavirus 19, PCR Detected (NotDetected)
[2023-01-07 14:11] VITALS: BP 121/79; PULSE 64; RESP 20; TEMP 37.1; O2SAT 95
== END 2023-01-07 14:16 | disposition home or self-care (01) ==
PROVIDERS: Emergency Provider Nurse Practitioner; PCP Family Medicine
DX: U07.1 COVID-19 (principal); R51.9 Headache, unspecified; R07.0 Pain in throat; R05.9 Cough, unspecified; R09.81 Nasal congestion; R50.9 Fever, unspecified; R07.1 Chest pain on breathing; J45.909 Unspecified asthma, uncomplicated; E78.5 Hyperlipidemia, unspecified; I10 Essential (primary) hypertension
CPT/HCPCS: 87636; 96372; 99212; 99214; G0463; J0696

== ENCOUNTER 2023-02-26 03:51 | Emergency (ER) | payer OTHER, SELFPAY ==
[2023-02-26] VITALS (8 sets, daily range): BP systolic 112–146; BP diastolic 68–100; PULSE 50–72; RESP 12–19; TEMP 36.9; O2SAT 95–98; BMI 27.1
--- NOTE | 2023-02-26 04:23 | CT_ITS ---
FINAL REPORT CLINICAL HISTORY: pelvic pain, urinary sx, RLQ pain COMPARISON: 11/14/2019 FINDINGS: CT OF THE ABDOMEN AND PELVIS WITH CONTRAST Axial CT images of the abdomen and pelvis were obtained after the administration of IV contrast. Coronal and sagittal reformatted images were also obtained and reviewed. This study was performed with techniques to keep radiation doses as low as reasonably achievable (ALARA). Individualized dose reduction techniques using automated exposure control or adjustment of mA and/or kV according to the patient's size were employed. Abdomen: The lung bases are clear. The heart is normal in size. The liver has an unremarkable appearance, without evidence of mass or biliary ductal dilatation. Postcholecystectomy. The spleen is unremarkable. No adrenal mass is present. The pancreas has an unremarkable appearance. The kidneys are normal, without evidence of mass or hydronephrosis. The aorta is normal in caliber. There is no free fluid or adenopathy. No mass or abnormal fluid collection is seen. Pelvis: The appendix is not visualized but there are no secondary signs of appendicitis. The urinary bladder is unremarkable. No inflammatory process is seen. There is no evidence of mass or adenopathy. There is no evidence of bowel obstruction. IMPRESSION: No evidence of acute intra-abdominal process. Reviewed, Interpreted and Dictated by Adrian Lobato III, MD Transcribed by Keily Morris Authenticated and [facility]
[2023-02-26 04:33] LABS: Basophils # 0.1 K/mm3 (0-0.2); Basophils % 1.3 % (0.1-2.0); Chloride 99 mmol/L (98-107); Eosinophils # 0.1 K/mm3 (0.0-0.4); Eosinophils % 2.3 % (0.1-12.0); Hematocrit 51.7 % (42.0-52.0); Hemoglobin 17.6 g/dL (14.1-18.0); Lymphocytes % 39.3 % (10-50); Mean Corpuscular HGB Conc 34.1 g/dL (31.8-35.4); Mean Corpuscular Hemoglobin 32.4 pg (27.0-31.2); Mean Corpuscular Volume 95.1 fl (80-94); Mean Platelet Volume 8.4 fl (7.4-10.4); Monocytes # 0.4 K/mm3 (0.1-1.0); Monocytes % 7.4 % (1.7-9.3); Neutrophils # 2.6 K/mm3 (1.8-7.8); Neutrophils % 49.7 % (37.0-80.0); Platelet Count 207 K/mm3 (142-424); Red Blood Count 5.43 M/mm3 (4.60-6.20); Red Cell Distribution Width 13.3 % (11.5-17.5); White Blood Count 5.1 K/mm3 (4.8-10.8)
--- NOTE | 2023-02-26 04:33 | ED_ITS ---
Discharge Plan Disposition Patient Disposition: Home, Self-Care Chief Complaint: Abdominal Pain Prescriptions Prescriptions: No Action bisoprolol fumarate 5 mg tablet 5 mg PO QDAY Qty: 90 3RF omeprazole 40 mg capsule,delayed release(DR/EC) 40 mg PO DAILY Qty: 90 3RF Referrals Follow up/Referrals: Flo Bose MD [Primary Care Provider] - See instructions Sanju Godfrey DO [Staff Physician] - See instructions Activity Restrictions/Add. Instructions Additional Instructions/Restrictions: At this time it was felt you are safe to be discharged home. If new or worsening symptoms please do not hesitate to return the emergency department. If symptoms persist please call and schedule an appointment with Dr. Godfrey for continued evaluation. Clinical Impressions Clinical Impression: Abdominal pain, Headache, Fatigue, Hypokalemia Instructions Patient Instructions: DI for Acute Abdominal Pain Discharge ED Provider: Re Flynn General Adult HPI <Re Flynn DO - Last Filed: 02/26/23 06:54> General Chief complaint: Abdominal Pain Stated complaint: Abdominal Pain Time Seen by Provider: 02/26/23 04:08 Mode of Arrival: Ambulatory Source of Information: Patient Limitations: No Limitations Description of Symptoms (Recalled from ER Triage Doc. by RN): Pt ambulatory to ED with c/o upper and lower abd pain, pelvic pain, and testicular pain x2 days. Pt also reports loss of appetite and diarrhea. Pt states the pain is pressure at times and intermittently sharp. Denies fever, chills, N/V, urinary sx. Pt states within the past approx 3 weeks he has had Rocephin and doxycycline from his PCP for possible prostatitis. Pt c/o right sided headache/dizzines, denies vision changes. Pt also states that he has had recent night sweats. History of Present Illness HPI narrative: This patient is a 32-year-old male presenting to the emergency department with concern for abdominal pain, pelvic pain, and testicular pain. Patient reports that his symptoms all started approximately 3 weeks ago with increased urinary frequency, urgency, and dysuria. He states that he was seen by his primary care provider and was given a shot of Rocephin and oral antibiotics. He completed the full course of oral antibiotics, and he states that his symptoms improved but did not completely go away. Given this, he went back to his primary care provider, who prescribed him doxycycline with concern for possible prostatitis. Patient states that he took this with improvement in his urinary symptoms, however he is now having abdominal pain is occasionally behind his ribs but right now is located in his right lower quadrant. He also states that he hurts down deep in his pelvis, and it feels like his prostate is hurting. He states that it radiates to both of his testicles, however he does not have lateralizing testicular pain, tenderness, or other concerns. No known traumatic injuries. No concerns for sexually transmitted infections. No fevers, chills, nausea, vomiting, or other concerns. He has not had any appetite, and his notes that he has basically been sleeping the entire time that he is not at work. She notes this is very much unlike him. He also has complained he has had new headaches and lightheadedness, mostly on the right side of his head. They do note he has a history of severe seasonal depression. Related Data Previous Rx's Medication Instructions Recorded bisoprolol fumarate 5 mg tablet 5 mg PO QDAY #90 tabs 10/09/22 omeprazole 40 mg capsule,delayed 40 mg PO DAILY #90 caps 10/09/22 release Allergies Allergy/AdvReac Type Severity Reaction Status Date / Time No Known Allergies Allergy Verified 12/23/22 14:35 [facility] <Re Flynn DO - Last Filed: 02/26/23 06:54> [facility] Disclaimer: The information contained in this section may have been updated after the patient was seen, as this information can be updated by other users. Medical History Asthma Hyperlipidemia Hypertension Surgical History H/O cardiac radiofrequency ablation History of cholecystectomy Social History Smoking Status: Unknown if ever smoked alcohol intake: never current occupational status: employed Travel in the last 8 weeks: None household members: family <Re Flynn DO - Last Filed: 02/26/23 06:54> ROS Obtained: Yes All systems reviewed & no additional complaints except as documented Physical Exam <Re Flynn DO - Last Filed: 02/26/23 06:54> General General appearance: alert and in no apparent distress Head Head exam: atraumatic and normocephalic Eye Eye exam: Present normal appearance, PERRL and EOMI ENT ENT exam: Present normal exam, normal oropharynx, mucous membranes moist and normal external ear exam Neck Neck exam: Present normal inspection, full ROM and trachea midline; Absent tenderness Chest Chest inspection: Present normal inspection and symmetric chest wall rise; Absent tenderness Respiratory Respiratory exam: Present normal lung sounds bilaterally; Absent respiratory distress, wheezes, stridor or accessory muscle use Cardiovascular Cardiovascular exam: Present regular rate and normal rhythm Abdominal Exam Abdominal exam: Present soft; Absent distention, tenderness or guarding Extremities Exam Extremities exam: Present normal inspection, full ROM and normal capillary refil l; Absent tenderness or edema Back Exam Back exam: Present normal inspection and full ROM; Absent tenderness Neurological Exam Neurological exam: Present alert, oriented X3, CN II-XII intact and normal gait; Absent motor sensory deficit Psychiatric Psychiatric exam: Present normal affect and normal mood Skin Skin exam: Present warm and dry Medical Decision Making <Re N Gee, DO - Last Filed: 02/26/23 06:54> Medical Records Medical records reviewed: Yes I reviewed the patient's medical records. Alex Inquiry Pt receiving controlled substance: No Vital Signs: 02/26/23 04:16 02/26/23 04:30 02/26/23 06:00 Temperature 98.5 F Temperature Source Oral Pulse Rate 59 L 55 L Pulse Rate [Left Radial] 64 Respiratory Rate 18 14 19 Blood Pressure 139/85 123/79 Blood Pressure [Right Arm] 146/100 H Blood Pressure Mean [Right Arm] 115 Blood Pressure Source Automatic Cuff Blood Pressure Source [Right Arm] Automatic Cuff Blood Pressure Position Sitting Blood Pressure Position [Right Arm] Sitting 02 Sat by Pulse Oximetry 96 98 96 Oxygen Delivery Method Room Air Room Air Room Air 02/26/23 06:30 02/26/23 07:29 02/26/23 08:04 Temperature Temperature Source Pulse Rate 63 54 L 72 Pulse Rate [Left Radial] Respiratory Rate 15 16 12 Blood Pressure 124/75 127/68 132/83 Blood Pressure [Right Arm] Blood Pressure Mean [Right Arm] Blood Pressure Source Automatic Cuff Automatic Cuff Blood Pressure Source [Right Arm] Blood Pressure Position Sitting Blood Pressure Position [Right Arm] 02 Sat by Pulse Oximetry 95 97 95 Oxygen Delivery Method Room Air Room Air 02/26/23 08:39 Temperature Temperature Source Pulse Rate 52 L Pulse Rate [Left Radial] Respiratory Rate 16 Blood Pressure 112/74 Blood Pressure [Right Arm] Blood Pressure Mean [Right Arm] Blood Pressure Source Blood Pressure Source [Right Arm] Blood Pressure Position Blood Pressure Position [Right Arm] 02 Sat by Pulse Oximetry 96 Oxygen Delivery Method Lab Data Lab results reviewed: Yes I reviewed the patient's lab results. Lab Results 02/26/23 04:00: Urine Color Yellow, Urine Appearance Clear, Urine pH 6.5, Ur Specific Oley 1.010, Urine Protein Negative, Urine Glucose (UA) Negative, Urine Ketones Negative, Urine Blood Negative, Urine Nitrate Negative, Urine Bilirubin Negative, Urine Urobilinogen 0.2, Ur Leukocyte Esterase Trace, Urine RBC None, Urine WBC Occasional, Ur Squamous Epith Cells Occasional, Urine Bacteria Trace 02/26/23 04:05: WBC 5.1, RBC 5.43, Hgb 17.6, Hct 51.7, MCV 95.1 H, MCH 32.4 H, MCHC 34.1, RDW 13.3, Plt Count 207, MPV 8.4, Neut % (Auto) 49.7, Lymph % (Auto) 39.3, Colbert % (Auto) 7.4, Eos % (Auto) 2.3, Baso % (Auto) 1.3, Neut # (Auto) 2.6, Lymph # (Auto) 2.0, Colbert # (Auto) 0.4, Eos # (Auto) 0.1, Baso # (Auto) 0.1, Sodium 139, Potassium 3.4 L, Chloride 99, Carbon Dioxide 29, Anion Gap 14.4, BUN 9, Creatinine 1.10, Estimated Creat Clear 123, Estimated GFR 77, Est GFR ( Amer) 93, Glucose 108 H, Calcium 9.3, Total Bilirubin 0.8, AST 38, ALT 37, Alkaline Phosphatase 69, Total Protein 7.9, Albumin 4.9, Globulin 3.0, Albumin/Globulin Ratio 1.6 02/26/23 04:05 02/26/23 04:05 Orders (Tests/Meds): ED MEDICATIONS Generic Name Dose Route Start Last Admin Trade Name Freq PRN Reason Stop Dose Admin Sodium Chloride 10 ml 02/26/23 05:03 02/26/23 05:04 Sodium Chloride 0.9% 10ml Syr (Rad Only) IV 03/28/23 05:02 10 ml NEEDED PRN Administration Maintain IV Site Discontinued Medications Generic Name Dose Route Start Last Admin Trade Name Jaime PRN Reason Stop Dose Admin Lactated Ringer's 1,000 mls @ 999 mls/hr 02/26/23 04:23 02/26/23 05:26 Lactated Ringer's 1000 Ml Bag IV 02/26/23 05:23 999 mls/hr .Q1H1M ONE Administration Iopamidol 75 ml 02/26/23 05:03 02/26/23 05:03 Iopamidol-370 (76%);100ml Bottle IV 02/26/23 05:04 75 ml ONCE ONE Administration ORDERS Category Date Time Status CT abdomen pelvis w con Stat Cat Scan 02/26/23 04:[address] head/brain wo con Stat Cat Scan 02/26/23 04:44 Completed Complete Blood Count Auto Diff Stat Lab 02/26/23 04:05 Completed Comprehensive Metabolic Panel Stat Lab 02/26/23 04:05 Completed Urinalysis and Microscopic Stat Lab 02/26/23 04:00 Completed ECG Data Tracing #1: I reviewed this ECG and interpreted as documented below: Sinus bradycardia with a ventricular rate of [address] changes concerning for ischemia. Moderate intraventricular conduction delay noted. ECG initial impression date: 02/26/23 ECG initial impression time: 05:06 Medical Decision Narrative: In summary, this patient is a 32 year old male presenting to the Emergency Department for evaluation of abdominal pain, pelvic pain, headaches, fatigue, poor appetite, and urinary symptoms. Differential diagnoses considered include but are not limited to prostatitis, cystitis, appendicitis, colitis, dehydration, migraine, viral syndrome, depression, anxiety. Ruling out the most morbid conditions drove assessment. On exam, the patient is nontoxic-appearing with reassuring vital signs on cardi ac telemetry. Abdominal exam is benign. He is neurologically intact. Workup included lab evaluation including CBC, CMP, urinalysis, urine gonorrhea chlamydia, postvoid bladder scan, EKG, CT head, and CT abdomen pelvis with IV contrast. Labs do not demonstrate any acutely concerning abnormalities. Urine is reassuring. Patient did not have any significant urinary retention. CT scan is pending. Patient care signed out to the oncoming provider, Dr. Sullivan, pending CT and disposition. <Bon Sullivan MD - Last Filed: 02/26/23 08:48> Vital Signs: 02/26/23 04:16 02/26/23 04:30 02/26/23 06:00 Temperature 98.5 F Temperature Source Oral Pulse Rate 59 L 55 L Pulse Rate [Left Radial] 64 Respiratory Rate 18 14 19 Blood Pressure 139/85 123/79 Blood Pressure [Right Arm] 146/100 H Blood Pressure Mean [Right Arm] 115 Blood Pressure Source Automatic Cuff Blood Pressure Source [Right Arm] Automatic Cuff Blood Pressure Position Sitting Blood Pressure Position [Right Arm] Sitting 02 Sat by Pulse Oximetry 96 98 96 Oxygen Delivery Method Room Air Room Air Room Air 02/26/23 06:30 02/26/23 07:29 02/26/23 08:04 Temperature Temperature Source Pulse Rate 63 54 L 72 Pulse Rate [Left Radial] Respiratory Rate 15 16 12 Blood Pressure 124/75 127/68 132/83 Blood Pressure [Right Arm] Blood Pressure Mean [Right Arm] Blood Pressure Source Automatic Cuff Automatic Cuff Blood Pressure Source [Right Arm] Blood Pressure Position Sitting Blood Pressure Position [Right Arm] 02 Sat by Pulse Oximetry 95 97 95 Oxygen Delivery Method Room Air Room Air 02/26/23 08:39 Temperature Temperature Source Pulse Rate 52 L Pulse Rate [Left Radial] Respiratory Rate 16 Blood Pressure 112/74 Blood Pressure [Right Arm] Blood Pressure Mean [Right Arm] Blood Pressure Source Blood Pressure Source [Right Arm] Blood Pressure Position Blood Pressure Position [Right Arm] 02 Sat by Pulse Oximetry 96 Oxygen Delivery Method Lab Data Lab Results 02/26/23 04:00: Urine Color Yellow, Urine Appearance Clear, Urine pH 6.5, Ur Specific Oley 1.010, Urine Protein Negative, Urine Glucose (UA) Negative, Urine Ketones Negative, Urine Blood Negative, Urine Nitrate Negative, Urine Bili lindsey Negative, Urine Urobilinogen 0.2, Ur Leukocyte Esterase Trace, Urine RBC None, Urine WBC Occasional, Ur Squamous Epith Cells Occasional, Urine Bacteria Trace 02/26/23 04:05: WBC 5.1, RBC 5.43, Hgb 17.6, Hct 51.7, MCV 95.1 H, MCH 32.4 H, MCHC 34.1, RDW 13.3, Plt Count 207, MPV 8.4, Neut % (Auto) 49.7, Lymph % (Auto) 39.3, Colbert % (Auto) 7.4, Eos % (Auto) 2.3, Baso % (Auto) 1.3, Neut # (Auto) 2.6, Lymph # (Auto) 2.0, Colbert # (Auto) 0.4, Eos # (Auto) 0.1, Baso # (Auto) 0.1, Sodium 139, Potassium 3.4 L, Chloride 99, Carbon Dioxide 29, Anion Gap 14.4, BUN 9, Creatinine 1.10, Estimated Creat Clear 123, Estimated GFR 77, Est GFR ( Amer) 93, Glucose 108 H, Calcium 9.3, Total Bilirubin 0.8, AST 38, ALT 37, Alkaline Phosphatase 69, Total Protein 7.9, Albumin 4.9, Globulin 3.0, Albumin/Globulin Ratio 1.6 Orders (Tests/Meds): ED MEDICATIONS Generic Name Dose Route Start Last Admin Trade Name Freq PRN Reason Stop Dose Admin Sodium Chloride 10 ml 02/26/23 05:03 02/26/23 05:04 Sodium Chloride 0.9% 10ml Syr (Rad Only) IV 03/28/23 05:02 10 ml NEEDED PRN Administration Maintain IV Site Discontinued Medications Generic Name Dose Route Start Last Admin Trade Name Freq PRN Reason Stop Dose Admin Lactated Ringer's 1,000 mls @ 999 mls/hr 02/26/23 04:23 02/26/23 05:26 Lactated Ringer's 1000 Ml Bag IV 02/26/23 05:23 999 mls/hr .Q1H1M ONE Administration Iopamidol 75 ml 02/26/23 05:03 02/26/23 05:03 Iopamidol-370 (76%);100ml Bottle IV 02/26/23 05:04 75 ml ONCE ONE Administration ORDERS Category Date Time Status CT abdomen pelvis w con Stat Cat Scan 02/26/23 04:[address] head/brain wo con Stat Cat Scan 02/26/23 04:44 Completed Complete Blood Count Auto Diff Stat Lab 02/26/23 04:05 Completed Comprehensive Metabolic Panel Stat Lab 02/26/23 04:05 Completed Urinalysis and Microscopic Stat Lab 02/26/23 04:00 Completed Medical Decision Narrative: In summary, this patient is a 32 year old male presenting to the Emergency Department for evaluation of abdominal pain, pelvic pain, headaches, fatigue, poor appetite, and urinary symptoms. Differential diagnoses considered include but are not limited to prostatitis, cystitis, appendicitis, colitis, dehydration, migraine, viral syndrome, depression, anxiety. Ruling out the most morbid conditions drove assessment. On exam, the patient is nontoxic-appearing with reassuring vital signs on cardiac telemetry. Abdominal exam is benign. He is neurologically intact. Workup included lab evaluation including CBC, CMP, urinalysis, urine gonorrhea chlamydia, postvoid bladder scan, EKG, CT head, and CT abdomen pelvis with IV contrast. Labs do not demonstrate any acutely concerning abnormalities. Urine is reassuring. Patient did not have any significant urinary retention. CT scan is pending. Patient care signed out to the oncoming provider, Dr. Sullivan, pending CT and disposition. Bon Sullivan: Upon assumption of care patient was hemodynamically stable. Workup reviewed by me, hematologic labs are nonactionable, CT imaging shows no acute pathology. Urinalysis interpreted by me, trace leuk esterase and occasional white blood cell count however nitrite negative, no overt signs of infection patient does not have dysuria. Patient has been treated with multiple rounds of antibiotics, lingering prostatitis is on the differential however patient is wrong demographic. Given this, shared decision-making discussion was had over MARY, empiric treatment of prostatitis, versus watchful waiting with probiotics given that his bowel may be significantly dysregulated with constipation and diarrhea in the setting of multiple rounds of previous antibiotics. Patient elected the latter. Should his symptoms persist he will follow-up with Dr. Godfrey. Patient was given return precautions. Critical Care <Re Flynn, DO - Last Filed: 02/26/23 06:54> Critical Care Time Critical Care Time: No
[2023-02-26 04:34] LABS: Potassium 3.4 mmoL/L (3.5-5.1); Sodium 139 mmol/L (136-145)
[2023-02-26 04:36] LABS: Alanine Aminotransferase 37 U/L (12-78); Alkaline Phosphatase 69 U/L (38-126); Aspartate Amino Transferase 38 U/L (17-59); Bilirubin,Total 0.8 mg/dl (0.2-1.3); Blood Urea Nitrogen 9 mg/dl (9-20); Creatinine Clearance Estimated 123 mL/min (50-200); Estimated Glomerular Filt Rate 77 ml/min (>60); GFR (African American) 93 ML/MIN (>60)
--- NOTE | 2023-02-26 04:36 | PC.NURSE ---
35 ml on bladder scan
[2023-02-26 04:37] LABS: Microscopic, Urine URINE MICROSCOPIC (MICROSCOPIC)
[2023-02-26 04:37] LABS: Albumin Level 4.9 g/dl (3.5-5.0); Albumin/Globulin Ratio 1.6 (1.1-1.8); Anion Gap 14.4 mEq/L (5-15); Calcium 9.3 mg/dl (8.4-10.2); Carbon Dioxide 29 mmol/L (22.0-30.0); Glucose 108 mg/dl (74-100); Total Protein,Serum 7.9 g/dl (6.3-8.2)
[2023-02-26 04:39] LABS: Appearance,Urine CLEAR (Clear); Bilirubin,Urine Negative (Negative); Blood, Urine Negative (Negative); Color,Urine YELLOW (Yellow); Glucose,Urine (UA) Negative (Negative); Ketones,Urine Negative (Negative); Leukocyte Esterase,Urine TRACE (Negative); Nitrate,Urine Negative (Negative); PH,Urine 6.5 (5.0-8.5); Protein,Urine Negative (Negative); Urobilinogen,Urine 0.2 EU/dl (0.2)
--- NOTE | 2023-02-26 04:44 | CT_ITS ---
FINAL REPORT CLINICAL HISTORY: headaches, excess sleepiness, dizziness COMPARISON: None FINDINGS: Axial images of the head were obtained without contrast. Coronal reformatted images were also obtained. This study was performed with techniques to keep radiation doses as low as reasonably achievable (ALARA). Individualized dose reduction techniques using automated exposure control or adjustment of mA and/or kV according to the patient's size were employed. There is no evidence of intracranial hemorrhage or mass. The ventricular size is within normal limits. There is no evidence of shift of the midline structures. No abnormal extra axial fluid collection is identified. No skull abnormality is seen on the bone window images. IMPRESSION: No acute intracranial abnormality. Reviewed, Interpreted and Dictated by Adrian Lobato III, MD Transcribed by Keily Morris Authenticated and [facility]
[2023-02-26 04:54] LABS: Bacteria,Urine Trace /lpf; Squamous Epithelial Cell,Urine Occasional #/hpf (0-5); WBC,Urine Occasional #/hpf (0-3)
[2023-02-26] MEDS: IOPAMIDOL-370 (76%);100ML BOTTLE 75 ML IV (05:03)
[2023-02-26] MEDS: SODIUM CHLORIDE 0.9% 10ML SYR (RAD ONLY) 10 ML IV (05:04)
--- NOTE | 2023-02-26 05:05 | ECG_ITS ---
APPROVED REPORT Exam: Resting ECG HR:52 bpm ECG Measurements Heart Rate 52 AXES TN 160 P 54 QRSd 113 QRS 65 QT 361 T 30 QTc 341 Conclusion SINUS BRADYCARDIA MODERATE INTRAVENTRICULAR CONDUCTION DELAY [110+ ms QRS DURATION] BORDERLINE ECG UNCONFIRMED REPORT Electronically signed by : Jose Barnhart MD 02/27/2023 10:07:45
[2023-02-26] MEDS: LACTATED RINGERS 1000ML 1,000 ML 999 ML IV (05:26)
--- NOTE | 2023-02-26 08:38 | PC.NURSE ---
ROUNDED ON PT, NO NEEDS AT THIS TIME. UPDATED ON POC. AWAITING CT RESULTS
--- NOTE | 2023-02-26 08:44 | PC.NURSE ---
DR LOZA AT BEDSIDE TO UPDATE PT
[2023-03-01 22:50] LABS: Neisseria gonorrhoeae, NAA Negative (Negative)
== END 2023-02-26 08:50 | disposition home or self-care (01) ==
PROVIDERS: Emergency Provider Emergency Medicine; PCP Family Medicine
DX: R10.10 Upper abdominal pain, unspecified (principal); R10.2 Pelvic and perineal pain; R51.9 Headache, unspecified; R53.83 Other fatigue; E87.6 Hypokalemia; J45.909 Unspecified asthma, uncomplicated; E78.5 Hyperlipidemia, unspecified; I10 Essential (primary) hypertension; R00.1 Bradycardia, unspecified
CPT/HCPCS: 70450; 74177; 80053; 81001; 85025; 87491; 87591; 93005; 96360; 99285; Q9967

== ENCOUNTER 2023-03-12 09:22 | Outpatient (CLI) | payer OTHER, SELFPAY ==
--- NOTE | 2023-03-12 09:31 | ECG_ITS ---
APPROVED REPORT Exam: Resting ECG HR:62 bpm ECG Measurements Heart Rate 62 AXES RI 154 P 76 QRSd 105 QRS 83 QT 328 T 65 QTc 333 Conclusion SINUS RHYTHM NORMAL ECG UNCONFIRMED REPORT Electronically signed by : Jose Barnhart MD 03/12/2023 15:05:23
[2023-03-12 09:47] LABS: Basophils # 0.1 K/mm3 (0-0.2); Basophils % 1.1 % (0.1-2.0); Eosinophils # 0.2 K/mm3 (0.0-0.4); Eosinophils % 3.5 % (0.1-12.0); Hematocrit 47.5 % (42.0-52.0); Hemoglobin 17.1 g/dL (14.1-18.0); Lymphocytes # 2.2 K/mm3 (0.7-4.5); Mean Corpuscular Volume 94.5 fl (80-94); Mean Platelet Volume 8.4 fl (7.4-10.4); Monocytes # 0.5 K/mm3 (0.1-1.0); Monocytes % 9.7 % (1.7-9.3); Neutrophils # 2.6 K/mm3 (1.8-7.8); Neutrophils % 46.7 % (37.0-80.0); Platelet Count 203 K/mm3 (142-424); Red Blood Count 5.02 M/mm3 (4.60-6.20); Red Cell Distribution Width 13.5 % (11.5-17.5); White Blood Count 5.5 K/mm3 (4.8-10.8)
[2023-03-12 10:19] LABS: Chloride 101 mmol/L (98-107); Sodium 140 mmol/L (136-145)
[2023-03-12 10:22] LABS: Blood Urea Nitrogen 13 mg/dl (9-20); Calcium 9.6 mg/dl (8.4-10.2); Carbon Dioxide 30 mmol/L (22.0-30.0); Estimated Glomerular Filt Rate 77 ml/min (>60); GFR (African American) 93 ML/MIN (>60); Glucose 99 mg/dl (74-100)
== END 2023-03-12 23:59 ==
LOC: LAB 09:24
PROVIDERS: Orthopaedic Surgery; PCP Family Medicine; Visit Provider Orthopaedic Surgery
DX: Z01.818 Encounter for other preprocedural examination (principal); R73.09 Other abnormal glucose; Z87.898 Personal history of other specified conditions
CPT/HCPCS: 36415; 80048; 85025; 93005

== ENCOUNTER 2023-03-17 16:11 | Outpatient (CLI) | payer OTHER, SELFPAY | END 2023-03-17 23:59 | LOC: LAB 16:13 | PROVIDERS: Orthopaedic Surgery; PCP Family Medicine; Visit Provider Orthopaedic Surgery | DX: R73.09 Other abnormal glucose (principal) | CPT/HCPCS: 83036 ==

== ENCOUNTER 2023-05-17 08:01 | Emergency (ER) | payer OTHER, SELFPAY ==
[2023-05-17 08:05] VITALS: BP 126/79; PULSE 70; RESP 19; TEMP 36.8; O2SAT 98; BMI 27.1
--- NOTE | 2023-05-17 08:20 | EXP.UTC ---
Discharge Plan Disposition Patient Disposition: Home, Self-Care Condition: Good Prescriptions Prescriptions: New azithromycin [Zithromax Z-Carlos Enrique] 250 mg tablet See Rx Instructions .ROUTE .COMPLEX 5 Days Qty: 6 0RF Rx Instructions: For 250 mg dose pack: take 500 mg today (day 1), then 250 mg for 4 days (days 2-5) methylprednisolone [Medrol (Carlos Enrique)] 4 mg tablets,dose pack See Rx Instructions .Route .COMPLEX 6 Days Qty: 21 0RF Rx Instructions: taper pack; guaifenesin [Mucinex] 600 mg tablet extended release 12hr 1,200 mg PO BID PRN (Reason: cough) Qty: 20 0RF No Action bisoprolol fumarate 5 mg tablet 5 mg PO QDAY Qty: 90 3RF omeprazole 40 mg capsule,delayed release(DR/EC) 40 mg PO DAILY Qty: 90 3RF Referrals Follow up/Referrals: Flo Bose MD [Primary Care Provider] - See instructions Activity Restrictions/Add. Instructions Additional Instructions/Restrictions: Start oral Steriods tomorrow Start antibiotic today. Be sure to complete entire prescription even if feeling better Monitor temp. Tylenol every 4 hours as needed and / or ibuprofen every 6 hours as needed ( As long as your primary care physician has told you that it ok to take both. For fever/aches/pains ER if no less than 101 despite Tylenol or Motrin Humidifier/vaporizer or hot steamy shower Mucinex for your cough Be sure to drink lots of water. Follow up IMMEDIATELY for new or worsening of symptoms OR no noticeable improvement over the next 48-72 hours. 911 immediately for any life threatening symptoms such as chest pain or difficulty breathing Clinical Impressions Clinical Impression: URI (upper respiratory infection) Qualifiers: URI type: unspecified URI Qualified Code(s): J06.9 - Acute upper respiratory infection, unspecified Instructions Patient Instructions: Sore Throat, DI for Sinusitis Discharge ED Provider: Naida Du [facility] General Stated complaint: sinus congestion, sore throat Mode of Arrival: Ambulatory Source of Information: Patient Limitations: No Limitations Time Seen by Provider: 05/17/23 08:20 Description of Symptoms (Recalled from Triage Doc. by RN): PATIENT C/O SINUS CONGESTION AND SORE THROAT X 3 DAYS HEENT Symptoms (Recalled from RN notes): Yes Resp Symptoms (Recalled from RN notes): No Skin Symptoms (Recalled from RN notes): No MS Symptoms (Recalled from RN notes): No Functional Status (Recalled from RN notes): WNL History of Present Illness Provider Complaint: Patient states that he started last week with sinus congestion and pressure, pressure in his ears and sore throat States for the last few days it has got worse States today he was still feeling bad and feels like it may be trying to move into his chest area so he came in to get checked Related Data Previous Rx's Medication Instructions Recorded bisoprolol fumarate 5 mg tablet 5 mg PO QDAY #90 tabs 10/09/22 omeprazole 40 mg capsule,delayed 40 mg PO DAILY #90 caps 10/09/22 release azithromycin 250 mg tablet See Rx Instructions PO .COMPLEX 5 05/17/23 (Zithromax Z-Carlos Enrique) days #6 tabs guaifenesin 600 mg tablet, 1,200 mg (2 x 600 mg) PO BID PRN 05/17/23 extended release 12 hr (Mucinex) cough #20 tabs methylprednisolone 4 mg tablets in See Rx Instructions .Route 05/17/23 a dose pack (Medrol (Carlos Enrique)) .COMPLEX 6 days #21 tabs Allergies Allergy/AdvReac Type Severity Reaction Status Date / Time No Known Allergies Allergy Verified 05/07/23 10:17 Worker's Comp Is this a Worker's Comp case?: No [facility] Disclaimer: The information contained in this section may have been updated after the patient was seen, as this information can be updated by other users. Medical History Asthma Hyperlipidemia Hypertension Surgical History H/O cardiac radiofrequency ablation History of cholecystectomy Social History Smoking Status: Unknown if ever smoked alcohol intake: never current occupational status: employed Travel in the last 8 weeks: None household members: family ROS Obtained: Yes All systems reviewed & no additional complaints except as documented and Yes Systems reviewed as appropriate & no additional complaints except as documented Constitutional Constitutional: Reports system reviewed and no additional complaints, except as documented, Reports as per HPI and Reports headache(s) ENT Ears, Nose, Mouth, and Throat: Reports system reviewed and no additional complaints, except as documented, Reports as per HPI, Reports otalgia (pressure), Reports headache(s), Reports sinus pain, Reports sinus pressure and Reports sore throat Cardiovascular Cardiovascular: Reports system reviewed and no additional complaints, except as documented and Reports as per HPI Respiratory Respiratory: Reports system reviewed and no additional complaints, except as documented and Reports as per HPI Gastrointestinal Gastrointestingal: Reports system reviewed and no additional complaints, except as documented and as per HPI Neurologic Neurologic: Reports headache(s) Physical Exam General General appearance: alert and in no apparent distress ENT ENT exam: Present mucous membranes moist Expanded ENT Exam Nose exam: Present sinus tenderness Throat exam: Present tonsillar erythema and other (PND noted) Respiratory Respiratory exam: Present normal lung sounds bilaterally; Absent respiratory distress or wheezes Cardiovascular Cardiovascular exam: Present regular rate, normal rhythm and normal heart sounds Neurological Exam Neurological exam: Present alert, oriented X3 and normal gait Medical Decision Making Alex Inquiry Pt receiving controlled substance: No Alex was queried for this patient: No Vital Signs: 05/17/23 08:05 Temperature 98.3 F Temperature Source Oral Pulse Rate [Right Brachial] 70 Respiratory Rate 19 Blood Pressure [Right Arm] 126/79 Blood Pressure Mean [Right Arm] 94 Blood Pressure Source [Right Arm] Automatic Cuff Blood Pressure Position [Right Arm] Sitting 02 Sat by Pulse Oximetry 98 Oxygen Delivery Method Room Air Lab Data Lab results reviewed: Yes I reviewed the patient's lab results. Medical Decision Narrative: Patient requesting URP states he is going to be flying next week and wants to make sure he doesnt have one of the viruses going around
[2023-05-17 08:23] LABS: Adenovirus,PCR Not Detected (NotDetected); Coronavirus 19, PCR Not Detected (NotDetected); Coronavirus NL63 Not Detected (NotDetected); Coronavirus OC43 Not Detected (NotDetected); Coronovirus HKU1,PCR Not Detected (NotDetected); Human Metapneumovirus Not Detected (NotDetected); Influenza A, PCR Not Detected (NotDetected); Influenza AH1, 2009 Not Detected (NotDetected); Influenza AH1, PCR Not Detected (NotDetected); Influenza AH3,PCR Not Detected (NotDetected); Influenza B, PCR Not Detected (NotDetected); Parainfluenza 1, PCR Not Detected (NotDetected); Parainfluenza 2, PCR Not Detected (NotDetected); Parainfluenza 3, PCR Not Detected (NotDetected); Parainfluenza 4, PCR Not Detected (NotDetected); Respiratory Syncytial Virus Not Detected (NotDetected); Rhinovirus/Enterovirus Not Detected (NotDetected)
[2023-05-17 08:31] LABS: UTC Strep Screen (Rapid) Negative (Negative)
[2023-05-17] MEDS: cefTRIAXone 1GM VIAL 1 GM IM (08:45)
[2023-05-17] MEDS: METHYLPREDNISOLONE SOD SUCC 125MG VIAL 125 MG IM (08:45)
[2023-05-17] MEDS: LIDOCAINE 1% 5ML PF VIAL IM (08:45)
[2023-05-17 08:49] VITALS: BP 126/79; PULSE 70; RESP 19; TEMP 36.8; O2SAT 98
[2023-05-17 11:19] LABS: Coronavirus 229E Detected (NotDetected)
== END 2023-05-17 09:03 | disposition home or self-care (01) ==
PROVIDERS: Emergency Provider Nurse Practitioner; PCP Family Medicine
DX: J01.90 Acute sinusitis, unspecified (principal); B34.2 Coronavirus infection, unspecified; R51.9 Headache, unspecified; R07.0 Pain in throat; H92.03 Otalgia, bilateral; I10 Essential (primary) hypertension; E78.5 Hyperlipidemia, unspecified
CPT/HCPCS: 87632; 87635; 87880; 96372; 99212; 99214; G0463; J0696

== ENCOUNTER 2023-07-10 11:50 | Emergency (ER) | payer OTHER, SELFPAY ==
--- NOTE | 2023-07-10 11:37 | ECG_ITS ---
APPROVED REPORT Exam: Resting ECG HR:137 bpm ECG Measurements Heart Rate 137 AXES QRSd 151 QRS 264 QT 273 T 0 QTc 353 Conclusion SVT with aberrancy Electronically signed by : MACIEJ GODOY, 07/10/2023 15:37:59
[2023-07-10 11:50] VITALS: BP 162/108; PULSE 139; RESP 15; TEMP 37.1; O2SAT 98; BMI 27.1
[2023-07-10] MEDS: ADENOSINE 6MG/2ML VIAL 6 MG IV (12:02)
[2023-07-10] MEDS: MAGNESIUM SULFATE IN WATER 2 GM/50 ML PIGGYBACK IV (12:02)
--- NOTE | 2023-07-10 12:08 | PC.NURSE ---
Dr. Bhandari at [facility]
[2023-07-10 12:09] LABS: Chloride 101 mmol/L (98-107); Potassium 4.1 mmoL/L (3.5-5.1); Sodium 139 mmol/L (136-145)
[2023-07-10 12:11] LABS: Alanine Aminotransferase 53 U/L (12-78); Alkaline Phosphatase 95 U/L (38-126); Anion Gap 13.1 mEq/L (5-15); Aspartate Amino Transferase 47 U/L (17-59); Bilirubin,Total 0.5 mg/dl (0.2-1.3); Blood Urea Nitrogen 14 mg/dl (9-20); Carbon Dioxide 29 mmol/L (22.0-30.0); Estimated Glomerular Filt Rate 77 ml/min (>60); GFR (African American) 93 ML/MIN (>60)
[2023-07-10 12:12] LABS: Albumin Level 4.9 g/dl (3.5-5.0); Albumin/Globulin Ratio 1.4 (1.1-1.8); Basophils # 0.1 K/mm3 (0-0.2); Calcium 9.7 mg/dl (8.4-10.2); Eosinophils # 0.4 K/mm3 (0.0-0.4); Eosinophils % 4.9 % (0.1-12.0); Globulin 3.5 g/dL (1.3-3.2); Glucose 102 mg/dl (74-100); Hematocrit 51.3 % (42.0-52.0); Hemoglobin 17.3 g/dL (14.1-18.0); Lymphocytes # 1.8 K/mm3 (0.7-4.5); Lymphocytes % 24.7 % (10-50); Mean Corpuscular HGB Conc 33.7 g/dL (31.8-35.4); Mean Corpuscular Hemoglobin 32.4 pg (27.0-31.2); Mean Corpuscular Volume 96.3 fl (80-94); Mean Platelet Volume 8.3 fl (7.4-10.4); Monocytes # 0.6 K/mm3 (0.1-1.0); Monocytes % 8.8 % (1.7-9.3); Neutrophils # 4.4 K/mm3 (1.8-7.8); Neutrophils % 60.6 % (37.0-80.0); Platelet Count 255 K/mm3 (142-424); Red Blood Count 5.32 M/mm3 (4.60-6.20); Total Protein,Serum 8.4 g/dl (6.3-8.2); White Blood Count 7.3 K/mm3 (4.8-10.8)
[2023-07-10 12:14] VITALS: BP 133/84; PULSE 97; RESP 16; O2SAT 97
--- NOTE | 2023-07-10 12:15 | ECG_ITS ---
APPROVED REPORT Exam: Resting ECG HR:96 bpm ECG Measurements Heart Rate 96 AXES AZ 201 P 72 QRSd 98 QRS 70 QT 313 T 57 QTc 367 Conclusion SINUS RHYTHM INCOMPLETE RIGHT BUNDLE BRANCH BLOCK Electronically signed by : MACIEJ GODOY, 07/10/2023 15:38:14
[2023-07-10 12:16] VITALS: BMI 27.1
[2023-07-10] MEDS: ADENOSINE 6MG/2ML VIAL 12 MG IV (12:24)
[2023-07-10] MEDS: dilTIAZem 25MG/5ML VIAL 25 MG IV (12:25)
--- NOTE | 2023-07-10 12:25 | XR_ITS ---
PROCEDURE INFORMATION: Exam: XR Chest Exam date and time: 07/10/2023 12:29 PM Age: 32 years old Clinical indication: Other: Rapid heart rate TECHNIQUE: Imaging protocol: Radiologic exam of the chest. Views: 1 view. Total images: 2 COMPARISON: CR CXR CHEST(2 VIEWS-NOT PORTABLE) 08/04/2016 11:25 AM FINDINGS: Lungs: Unremarkable. No consolidation. Pleural spaces: Unremarkable. No pleural effusion. No pneumothorax. Heart/Mediastinum: Unremarkable. No cardiomegaly. Bones/joints: Unremarkable. IMPRESSION: No acute findings.
[2023-07-10 12:30] VITALS: BP 133/84; PULSE 101; O2SAT 95
[2023-07-10 12:34] VITALS: PULSE 139
--- NOTE | 2023-07-10 12:37 | ED_ITS ---
Discharge Plan Disposition Patient Disposition: Home, Self-Care Chief Complaint: Chest Pain Prescriptions Prescriptions: No Action bisoprolol fumarate 5 mg tablet 5 mg PO QDAY Qty: 90 3RF omeprazole 40 mg capsule,delayed release(DR/EC) 40 mg PO DAILY Qty: 90 3RF azithromycin [Zithromax Z-Carlos Enrique] 250 mg tablet See Rx Instructions .ROUTE .COMPLEX 5 Days Qty: 6 0RF Rx Instructions: For 250 mg dose pack: take 500 mg today (day 1), then 250 mg for 4 days (days 2-5) methylprednisolone [Medrol (Carlos Enrique)] 4 mg tablets,dose pack See Rx Instructions .Route .COMPLEX 6 Days Qty: 21 0RF Rx Instructions: taper pack; guaifenesin [Mucinex] 600 mg tablet extended release 12hr 1,200 mg PO BID PRN (Reason: cough) Qty: 20 0RF Referrals Follow up/Referrals: Provider,Referral, MD [Primary Care Provider] - See instructions Activity Restrictions/Add. Instructions Additional Instructions/Restrictions: Follow-up with cardiology, call to schedule an appointment. Increase bisoprolol to 5 mg daily. Call your family doctor to establish care for this visit to the emergency department and schedule follow-up within 48 hours to ensure improvement. If you have any worsening of your condition or any other concerning signs or symptoms, return to the emergency department or your primary care doctor for further evaluation. Clinical Impressions Clinical Impression: Sustained SVT Discharge ED Provider: Manish Bhandari [facility] General Chief Complaint: Chest Pain Stated Complaint: chest pain Time Seen by Provider: 07/10/23 11:52 Mode of Arrival: Ambulatory Source of Information: Patient, Spouse and Medical Record Limitations: No Limitations Description of Symptoms (Recalled from ER Triage Doc. by RN): c/o chest pressure after having a big cough approx around 10:30am. History of Present Illness HPI narrative: 32-year-old male history of SVT requiring ablation in the past presenting with tachycardia. Patient states that earlier this morning, he was coughing when he had immediate onset chest pressure. Denies overt pain, nausea, vomiting, diaphoresis, but does feel short of breath. Last time he felt this way was when he was in SVT. Went to local EMS facility, EKG concerning for SVT, so came to the emergency department for further evaluation. Please note that above description of symptoms, in this electronic medical record under categorization of recalled from ER triage doctor by RN are reflective of an initial nursing assessment, however, is not reflective of my full history and physical exam that was personally taken and clarified. Consequentially, this preceding description of symptoms, which may include the patient's categorized chief complaint in the EMR, do not reflect my personal clinical impression, and the ultimate description of history of present illness and patient stated complaints should be deferred to this section of the note. Unless stated otherwise or congruent with this section of the note, additional signs, symptoms, or incongruence should be interpreted as inaccurate with my clinical impression. Related Data Previous Rx's Medication Instructions Recorded bisoprolol fumarate 5 mg tablet 5 mg PO QDAY #90 tabs 10/09/22 omeprazole 40 mg capsule,delayed 40 mg PO DAILY #90 caps 10/09/22 release azithromycin 250 mg tablet See Rx Instructions PO .COMPLEX 5 05/17/23 (Zithromax Z-Carlos Enrique) days #6 tabs guaifenesin 600 mg tablet, 1,200 mg (2 x 600 mg) PO BID PRN 05/17/23 extended release 12 hr (Mucinex) cough #20 tabs methylprednisolone 4 mg tablets in See Rx Instructions .Route 05/17/23 a dose pack (Medrol (Carlos Enrique)) .COMPLEX 6 days #21 tabs Allergies Allergy/AdvReac Type Severity Reaction Status Date / Time No Known Allergies Allergy Verified 06/23/23 09:48 [facility] Disclaimer: The information contained in this section may have been updated after the patient was seen, as this information can be updated by other users. Medical History Asthma Hyperlipidemia Hypertension Surgical History H/O cardiac radiofrequency ablation History of cholecystectomy Social History Smoking Status: Never smoker alcohol intake: never current occupational status: employed Travel in the last 8 weeks: None household members: family ROS Obtained: Yes All systems reviewed & no additional complaints except as documented Physical Exam General General appearance: alert, anxious and other (Tremulous) Neck Neck exam: Present trachea midline Chest Chest inspection: Present normal inspection and symmetric chest wall rise Respiratory Respiratory exam: Present normal lung sounds bilaterally; Absent respiratory distress, wheezes, stridor, accessory muscle use or prolonged expiratory phase Cardiovascular Cardiovascular exam: Present normal rhythm, tachycardia and normal heart sounds Extremities Exam Extremities exam: Absent edema Neurological Exam Neurological exam: Present alert, oriented X3 and CN II-XII intact Skin Skin exam: Present warm and dry; Absent cyanosis, diaphoresis or pallor HEART Score HEART Score HEART Score assessment performed?: No Critical Care Critical Care Time Critical Care Time: Yes (cv) Attestation: On 07/10/23, the high probability of a clinically significant, sudden or life threatening deterioration of the following system(s) required my full and direct attention, intervention and personal management. The time I documented below is in addition to time spent performing reported procedures but includes the following listed in this critical care notation. Total Time Total Critical Care Time: 35 Medical Decision Making Medical Records Medical records reviewed: Yes I reviewed the patient's medical records. Alex Inquiry Pt receiving controlled substance: No Alex was queried for this patient: No Vital Signs Vital Signs: 07/10/23 11:50 07/10/23 12:14 07/10/23 12:30 Temperature 98.7 F Temperature Source Oral Pulse Rate 97 H 101 H Pulse Rate [Left Radial] 139 H Respiratory Rate 15 16 Blood Pressure 133/84 133/84 Blood Pressure [Right Arm] 162/108 H Blood Pressure Mean [Right Arm] 126 Blood Pressure Source Automatic Cuff Blood Pressure Source [Right Arm] Automatic Cuff Blood Pressure Position [Right Arm] Sitting 02 Sat by Pulse Oximetry 98 97 95 Oxygen Delivery Method Room Air Room Air Room Air 07/10/23 12:34 07/10/23 13:00 Temperature Temperature Source Pulse Rate 139 H 109 H Pulse Rate [Left Radial] Respiratory Rate Blood Pressure 137/93 H Blood Pressure [Right Arm] Blood Pressure Mean [Right Arm] Blood Pressure Source Blood Pressure Source [Right Arm] Blood Pressure Position [Right Arm] 02 Sat by Pulse Oximetry 94 L Oxygen Delivery Method Room Air Lab Data Labs: Lab Results 07/10/23 11:50: WBC 7.3, RBC 5.32, Hgb 17.3, Hct 51.3, MCV 96.3 H, MCH 32.4 H, MCHC 33.7, RDW 14.0, Plt Count 255, MPV 8.3, Neut % (Auto) 60.6, Lymph % (Auto) 24.7, [place] % (Auto) 8.8, Eos % (Auto) 4.9, Baso % (Auto) 1.0, Neut # (Auto) 4.4, Lymph # (Auto) 1.8, [place] # (Auto) 0.6, Eos # (Auto) 0.4, Baso # (Auto) 0.1, Sodium 139, Potassium 4.1, Chloride 101, Carbon Dioxide 29, Anion Gap 13.1, BUN 14, Creatinine 1.10, Estimated GFR 77, Est GFR ( Amer) 93, Glucose 102 H, Calcium 9.7, Total Bilirubin 0.5, AST 47, ALT 53, Alkaline Phosphatase 95, Total Protein 8.4 H, Albumin 4.9, Globulin 3.5 H, Albumin/Globulin Ratio 1.4, TSH 0.85, Thyroxine (T4) 5.6 07/10/23 11:50 07/10/23 11:50 Response Orders (Tests/Meds): ED MEDICATIONS Discontinued Medications Generic Name Dose Route Start Last Admin Trade Name Freq PRN Reason Stop Dose Admin Adenosine 6 mg 07/10/23 11:52 07/10/23 12:02 Adenosine 6mg/2ml Vial IV 07/10/23 11:53 6 mg ONCE ONE Administration Adenosine 12 mg 07/10/23 12:21 07/10/23 12:24 Adenosine 6mg/2ml Vial IV 07/10/23 12:22 12 mg ONCE ONE Administration Diltiazem HCl 25 mg 07/10/23 12:22 07/10/23 12:25 Diltiazem 25mg/5ml Vial IV 07/10/23 12:23 25 mg ONCE ONE Administration Magnesium Sulfate 2 gm in 50 mls @ 50 mls/hr 07/10/23 11:53 07/10/23 12:02 Magnesium Sulfate 2gm/50ml Premix IV 07/10/23 12:52 50 mls/hr ONCE ONE Administration ORDERS Category Date Time Status CXR --portable [XR chest portable] Stat Exams 07/10/23 12:25 Taken CBC w/Auto Diff [Complete Blood Count Auto Diff] Stat Lab 07/10/23 11:50 Completed CMP [Comprehensive Metabolic Panel] Stat Lab 07/10/23 11:50 Completed T4 (Thyroxine) Stat Lab 07/10/23 11:50 Completed TSH [Thyroid Stimulating Hormone] Stat Lab 07/10/23 11:50 Completed MDM Narrative Medical Decision Narrative: 32-year-old male history of SVT requiring ablation in the past presenting with tachycardia. Patient states that earlier this morning, he was coughing when he had immediate onset chest pressure. Denies overt pain, nausea, vomiting, diaphoresis, but does feel short of breath. Last time he felt this way was when he was in SVT. Went to local EMS facility, EKG concerning for SVT, so came to the emergency department for further evaluation. History was obtained via conversation with patient. On arrival, patient hemodynamically stable, alert, oriented x4, appropriate, GCS 15, moving all extremities spontaneously, pupils equal and reactive to light. Full physical exam performed and significant for anxious appearing male no acute distress. He is hypertensive, tachycardic rate around 140. No abnormal heart sounds. No lower extremity edema. Pulses are equal and symmetric in upper and lower extremities. Differential includes SVT, [id number]-Akrlp, A-fib with RVR, ventricular tachycardia, aberrancy, metabolic abnormality, endocrinologic abnormality, among others. Patient was placed on welder gas automatic with pads. Given 324 mg aspirin. Patient placed on welder gas automatic with initial blood pressure 162/108, pulse 139, oxygen saturation 98 on room air. Initial EKG independently interpreted and significant for what appears to be SVT with aberrancy with retrograde P waves. No ischemic change. Rate 137, QRS wide 151, QT 350. [place] normal. Patient was given 6 mg adenosine and patient was symptomatic, no change on monitor. 12 mg had similar effect. 25 diltiazem IV push was administered, patient converted to normal sinus rhythm. Repeat EKG was independently interpreted and significant for sinus rhythm with incomplete right bundle branch block, no ischemic change. [place] intervals mildly prolonged at 201 ms, QRS, QT intervals within normal limits. Independent interpretation of workup demonstrates nonactionable CBC or chemistry, thyroid studies normal. Independent interpretation of chest x-ray demonstrates no acute cardiopulmonary space disease. On reevaluation, comfortably bed able to tolerate p.o. intake, back to baseline. Still mildly tachycardic. I talked with cardiology, they recommended increasing his bisoprolol from 2.5 mg daily to 5 mg daily. Patient agreeable to this. Given patient presentation, workup, history, this most likely represents SVT. Because patient at baseline without signs or symptoms of clinical decompensation, deemed appropriate for discharge. Results were relayed to patient who voiced understanding and were agreeable to outpatient management and follow up. I discussed my clinical impression with patient and answered all questions. At this time, the evidence for any other entities in the differential is insufficient to warrant any further testing or ED observation. This was explained as well. Advisory was given that persistent or worsening symptoms require further evaluation. I confirmed the understanding of this discussion. Corporate Quality Assurance Manager disclaimer Much of this encounter note is an electronic plant operations worker spoken language to printed text. Electronic plant operations worker of the spoken language may permit errors. Although I have reviewed the note, some errors may still exist.
[2023-07-10 13:00] VITALS: BP 137/93; PULSE 109; O2SAT 94
[2023-07-10 13:11] LABS: T4 (Thyroxine) 5.6 ug/dl (5.53-11.0)
[2023-07-10 13:24] LABS: Thyroid Stimulating Hormone 0.85 uIU/mL (0.465-4.68)
[2023-07-10 13:51] VITALS: BP 140/95; PULSE 105; RESP 18; TEMP 36.6; O2SAT 98
== END 2023-07-10 13:55 | disposition home or self-care (01) ==
PROVIDERS: Emergency Provider Emergency Medicine
DX: I47.10 Supraventricular tachycardia, unspecified (principal); R07.9 Chest pain, unspecified; I10 Essential (primary) hypertension; E78.5 Hyperlipidemia, unspecified
CPT/HCPCS: 71045; 80053; 84436; 84443; 85025; 93005; 96365; 96375; 99285; J3475

== ENCOUNTER 2023-07-15 15:30 | Outpatient (CLI) | payer OTHER, SELFPAY | END 2023-07-15 23:59 | disposition home or self-care (01) | LOC: RT 15:31 | PROVIDERS: PCP Family Medicine; Visit Provider Internal Medicine | DX: I47.10 Supraventricular tachycardia, unspecified (principal) | CPT/HCPCS: 93270 ==

== ENCOUNTER 2023-07-27 14:43 | Outpatient (CLI) | payer OTHER, SELFPAY ==
--- NOTE | 2023-07-27 14:44 | CA_ITS ---
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 HTN, HLD Echo Enhancing Agent Comments: Patient declined bubble study at this time. 2D Dimensions Left Atrium 3.84 cm M-Mode Dimensions RVDd 2.58 cm (0.9-2.6) LA Diam 3.23 cm (1.9-4.0) LVDd 5.59 cm (3.5-5.7) LVDs 3.15 cm (3.5-5.7) IVSd 0.76 cm (0.6-1.1) PWd 0.80 cm (0.6-1.1) EF (Teich) 74.20% EPSs 0.91 cm FS 43.60% EDV (Teich) 153.00 mL TAPSE 2.48 (<1.7) ESV (Teich) 39.40 mL LV Diastology E Decel Time 263 (160-240 msec) E/A Ratio 1.51 MED A' 9.70 cm/s LAT A' 12.50 cm/s Aortic Valve SIMON Index 1.52 cm2/m2 AoV Peak Jacob. 129.0 (50-130 cm/s) AO Peak GR. 6.60 mmHg AO Mean GR. 3.30 (<5 mmHg) AO VTI 24.6 (18-25 cm) SIMON (VTI) 3.41 (2.5-4.5 cm2) Mitral Valve MV A Velocity 43.0 (40-130 cm/s) E/A Ratio 1.51 Pulmonary Valve PV Peak Velocity 117.0 (50-150 cm/s) Tricuspid Valve TR P. Velocity 133.00 cm/s RAP Estimate 10.00 mmHg RVSP 17.10 mmHg Left Ventricle The left ventricle is normal size. The left ventricular systolic function is normal. The left ventricular ejection fraction is within the normal range. There is normal left ventricular wall thickness. There is normal LV segmental wall motion. The left ventricular diastolic function is normal. LVEF is 55%. Right Ventricle The right ventricle is normal size. The right ventricular systolic function is normal. Atria The left atrium size is normal. The right atrium size is normal. s/p reported spontaneous ASD closure during childhood. There is no Doppler evidence of interatrial shunt. The patient declined administration of agitated saline. Aortic Valve The aortic valve opens well. There is no aortic valvular stenosis. No aortic regurgitation is present. Mitral Valve The mitral valve is normal in structure. No evidence of mitral valve stenosis. Trace mitral regurgitation. Tricuspid Valve The tricuspid valve leaflets are thin and pliable. Mild tricuspid regurgitation. RVSP is normal. Pulmonic Valve The pulmonary valve is normal in structure. Trace pulmonic regurgitation. Great Vessels The aortic root is normal in size. The ascending aorta is not well-visualized. IVC is normal in size and collapses >50% with inspiration. Pericardium There is no pericardial effusion. Other Information Study Quality: Fair Conclusion Normal biventricular systolic function. Mild TR. s/p reported spontaneous ASD closure during childhood. There is no Doppler evidence of interatrial shunt. The patient declined administration of agitated saline in this study. Electronically signed by : Kimmy Ulloa MD 07/31/2023 21:21:28
== END 2023-07-27 23:59 | disposition home or self-care (01) ==
LOC: RT 14:44
PROVIDERS: PCP Family Medicine; Visit Provider Internal Medicine
DX: I47.10 Supraventricular tachycardia, unspecified (principal)
CPT/HCPCS: 93306

== ENCOUNTER 2023-08-12 14:55 | Outpatient (CLI) | payer OTHER, SELFPAY ==
[2023-08-12 15:39] LABS: Cholesterol 252 mg/dl (140-200); HDL Cholesterol 36 mg/dl (40-60); Triglycerides 381 mg/dl (30-150); VLDL Cholesterol 76 mg/dL (0-40)
== END 2023-08-12 23:59 | disposition home or self-care (01) ==
LOC: LAB 14:55
PROVIDERS: PCP Family Medicine; Visit Provider Internal Medicine
DX: Z82.49 Family history of ischemic heart disease and other diseases of the circulatory system (principal); I47.10 Supraventricular tachycardia, unspecified
CPT/HCPCS: 36415; 80061

== ENCOUNTER 2023-08-18 09:00 | Outpatient (RCR) | payer OTHER, SELFPAY ==
--- NOTE | 2023-03-26 13:47 | HMH.PTOPEV ---
PT Outpatient Evaluation Rehab PT Outpatient Evaluation Start: 03/26/23 13:28 Freq: Status: Active Protocol: Document 03/26/23 13:29 RITA (Rec: 03/26/23 13:47 RITA [id number]) E-signed By Edouard Sutton, PT Outpatient Therapy Subjective History Subjective History This is the initial PT eval for Raghav Cruz, 32 yowm who presents ~ 3 days S/P L knee ACL reconstruction via hams tendon graft with medial menisectomy. He presents using B axillary crutches for ambulation with T-scope in place and locked in ext. JEANNE wrap and sof-roll removed during examination and all incisions appear healthy without drainage noted. Pt reports original injury was ~ 15 yrs ago. No significant PMH noted. New diagnosis of cancer in past 12 No months? Chief Complaint Pain,Stiff,Swelling,Weakness Symptom Type Ache,Sharp Symptoms Relieved By Rest/Positioning Symptoms Aggravated By Standing,Physical Activity, Walking Prior Functional Limitations None Current Functional Limitations Housework,Driving,Standing, Squatting,Recreation Activity, Walking,Stairs Symptom Description Constant but Variable Level of pain today (0-10) 5 Pain scale - at its worst (0-10) 9 Hip/Knee Eval Gait Observation General Gait Pattern Observation Antalgic Gait,Decrease Weight Bear (L),Decrease Stride Lngth (R),Decrease Stride Lngth (L) Assistive Device Assistive Devices Axillary Crutches Palpation Tenderness left Knee Palpation Finding Tenderness Knee Palpation Overall Comment medial knee jt line 2/4 MMT Hip Flexion Strength Grade 2 Poor Hip Abduction Strength Grade 2 Poor Hip Adduction Strength Grade 2 Poor Hip Extension Strength Grade 2 Poor Knee Extension Strength Grade 2 Poor Knee Flexion Strength Grade 2 Poor ROM Knee Extension Active Range of Motion ( -5 degrees) Knee Flexion Active Range of Motion ( 5-75 degrees) Lower Extremity Functional Index Activities Today, do you or would you have any difficulty at all with: a.Any of your usual work, housework or Quite a bit of difficulty school activities b. Your usual hobbies, recreational or Extreme difficulty or unable sporting activities to perform activity c. Getting into or out of the bath Moderate difficulty d. Walking between rooms Moderate difficulty e. Putting on your shoes or socks Quite a bit of difficulty f. Squatting Extreme difficulty or unable to perform activity g. Lifting an object, like a bag of Quite a bit of difficulty groceries from the floor h. Performing light activities around Moderate difficulty your home i. Performing heavy activities around Extreme difficulty or unable your home to perform activity j. Getting into or out of a car Moderate difficulty k. Walking 2 blocks Extreme difficulty or unable to perform activity l. Walking a mile Extreme difficulty or unable to perform activity m. Going up or down 10 stairs (about 1 Extreme difficulty or unable flight of stairs) to perform activity n. Standing for 1 hour Extreme difficulty or unable to perform activity o. Sitting for 1 hour Quite a bit of difficulty p. Running on even ground Extreme difficulty or unable to perform activity q. Running on uneven ground Extreme difficulty or unable to perform activity r. Making sharp turns while running fast Extreme difficulty or unable to perform activity s. Hopping Extreme difficulty or unable to perform activity t. Rolling over in bed Quite a bit of difficulty LEFI Score Lower Extremity Functional Index Score 13 Outpatient Therapy Assessment Impairments Problems/Impairmments Palpation Tenderness,Impaired Range of Motion,Impaired Strength,Impaired Endurance, Impaired Transfers,Impaired Gait Pattern,Impaired Walking, Impaired Standing,Impaired Sitting,Impaired Driving, Impaired Lifting,Impaired Shower/Bathing,Impaired Household Care,Impaired Stair Climbing,Impaired Incline Stepping,Impaired Stepping on Uneven Surface,Impaired Squatting,Impaired Recreational Activities, Impaired Running,Impaired Jumping,Impaired Work Activities,Increased Edema, Subjective C/O Pain,Impaired Self Care/Self Management Prognosis Rehab Potential Good Clinical Impression Consistent with Diagnosis Yes Short Term Goals Number of Weeks 4 Decreased Palpation Tenderness Yes: 1/4 L knee Increase Range of Motion Yes: L knee 0-90 deg Increase Strength Yes: L LE grossly 3/5 throughout Improve Gait Pattern with Assistive Yes: no antalgic gait pattern Device Improve Ability to Shower/Bathe Self Yes Improve LEFI Score Yes: >30 Decrease Subjective C/O Pain Yes: 05/01 Patient to be Ind w/ HEP Yes Long-Term Goals Number of Weeks 6-8 Decreased Palpation Tenderness Yes: 0/4 L knee Increase Range of Motion Yes: L knee WFL Increase Strength Yes: L LE 4-4+/5 throughout Improve Gait Pattern without Assistive Yes: No antalgic gait pattern Device Increase Ability to Walk Yes: > 30 min without pain Improve Ability to Climb Stairs Yes Improve Tolerance to Work Activities Yes Improve LEFI Score Yes: >50 Decrease Subjective C/O Pain Yes: 03/03 Patient to be Ind w/ Advanced HEP Yes Outpatient Therapy Plan of Care Treatment Plan May Include Therapeutic Exercise Including Home Yes Exercise Program Manual Therapy Techniques Yes Neuromuscular Re-education Yes Therapeutic Activities to Return to Yes Previous Functional/Work Level Gait Training Yes ADL/Self Care Education Yes Thermal Modalities Yes Electrical Stimulation Yes Ultrasound/Phonophoresis Yes Iontophoresis Yes Orthotics/Bracing/Splinting Yes Vasopneumatic Compression Pump Yes Massage Yes Manual Lymphatic Drainage Yes Eval/Re-Eval Yes Frequency Times per week 2-3 Duration Number of Weeks 6-8 Addendums This patient is a candidate for social No or vocational rehab? Patient/Guardian verbally acknowledges Yes understanding of treatment program and consents to further treatment? Patient/Guardian verbally acknowledges Yes understanding of diagnosis, prognosis and goals for treatment? Eval Complexity PT Charges 94855 - High Complexity Shoulder/Elbow Eval Shoulder Objective Measurements Elbow Objective Measurements PHYSICIAN CERTIFICATION: I certify the specified therapy services for Raghav Cruz are required, authorized, and reviewed every 30 days.
--- NOTE | 2023-04-27 08:56 | HMH.RHREAS ---
Rehab Reassessment Rehab OP Re-assessment Start: 03/26/23 13:28 Freq: Status: Active Protocol: Document 04/27/23 08:03 MALIK (Rec: 04/27/23 08:55 MALIK [id number]) E-signed By Jorge Yeboah, PT Lower Extremity Functional Index Activities Today, do you or would you have any difficulty at all with: a.Any of your usual work, housework or Moderate difficulty school activities b. Your usual hobbies, recreational or Extreme difficulty or unable sporting activities to perform activity c. Getting into or out of the bath A little bit of difficulty d. Walking between rooms A little bit of difficulty e. Putting on your shoes or socks Moderate difficulty f. Squatting Quite a bit of difficulty g. Lifting an object, like a bag of Moderate difficulty groceries from the floor h. Performing light activities around A little bit of difficulty your home i. Performing heavy activities around Moderate difficulty your home j. Getting into or out of a car A little bit of difficulty k. Walking 2 blocks Quite a bit of difficulty l. Walking a mile Extreme difficulty or unable to perform activity m. Going up or down 10 stairs (about 1 Moderate difficulty flight of stairs) n. Standing for 1 hour Quite a bit of difficulty o. Sitting for 1 hour Quite a bit of difficulty p. Running on even ground Extreme difficulty or unable to perform activity q. Running on uneven ground Extreme difficulty or unable to perform activity r. Making sharp turns while running fast Extreme difficulty or unable to perform activity s. Hopping Quite a bit of difficulty t. Rolling over in bed Moderate difficulty LEFI Score Lower Extremity Functional Index Score 29 Rehab Re-assessment Subjective Subjective Pt reports 1/10 left knee pain at rest and 3/10 left knee pain w/activity on VAS, and feels 50% better overall since I eval Objective Objective Notes AROM: LEFT KNEE FLX 2-114 (2 DEGREE EXT LAG) PROM: LEFT KNEE FLX 0-125 MMT: LEFT KNEE EXT 4--4/5, L KNEE FLX 4-/5, L HIP FLX 4/5, L HIP ABD 4-/5, L HIP ADD 4--4 /5, L HIP EXT 4-/5 TTP: LEFT KNEE MEDIAL JT LINE 2-34, L KNEE LATERAL JT LINE 0-1/4 GAIT: WFL ON LEVEL TERRAIN W/T -SCOPE UNLOCKED Assessment Progress Assessment Progressing as Expected Assessment Notes SIGNIFICANT IMPROVEMENTS IN ROM, STRENGTH, TTP, AND GAIT Patient goals met STG'S 08/29 Goals Not Met STG'S 03/01, LTG'S 12/01 Plan Plan Pt to continue w/skilled P.T. to make further improvements in ROM, strength, TTP, and gait to allow for optimal function Frequency of Therapy 2-3x/wk Duration of therapy 8-12wks Time and Billing Re-Eval Time 11 Re-Eval Billing Units 1 PHYSICIAN CERTIFICATION: I certify the specified therapy services for Raghav Cruz are required, authorized, and reviewed every 30 days.
--- NOTE | 2023-06-03 10:52 | HMH.RHREAS ---
Rehab Reassessment Rehab OP Re-assessment Start: 03/26/23 13:28 Freq: Status: Active Protocol: Document 06/03/23 10:20 MALIK (Rec: 06/03/23 10:51 MALIK [id number]) E-signed By Jorge Yeboah, PT Lower Extremity Functional Index Activities Today, do you or would you have any difficulty at all with: a.Any of your usual work, housework or A little bit of difficulty school activities b. Your usual hobbies, recreational or Extreme difficulty or unable sporting activities to perform activity c. Getting into or out of the bath No difficulty d. Walking between rooms No difficulty e. Putting on your shoes or socks A little bit of difficulty f. Squatting A little bit of difficulty g. Lifting an object, like a bag of A little bit of difficulty groceries from the floor h. Performing light activities around No difficulty your home i. Performing heavy activities around Moderate difficulty your home j. Getting into or out of a car No difficulty k. Walking 2 blocks Moderate difficulty l. Walking a mile Moderate difficulty m. Going up or down 10 stairs (about 1 A little bit of difficulty flight of stairs) n. Standing for 1 hour Moderate difficulty o. Sitting for 1 hour Moderate difficulty p. Running on even ground Quite a bit of difficulty q. Running on uneven ground Quite a bit of difficulty r. Making sharp turns while running fast Quite a bit of difficulty s. Hopping Quite a bit of difficulty t. Rolling over in bed No difficulty LEFI Score Lower Extremity Functional Index Score 49 Rehab Re-assessment Subjective Subjective Pt reports 3/10 left knee pain with mostly anterio-medial area discomfort, 'but I walked a lot last week on vacation.' Pt reports feeling 65-70% better overall since I eval. Objective Objective Notes AROM: LEFT KNEE FLX 0-131 AAROM: LEFT KNEE FLX 0-135 PROM: LEFT KNEE FLX 0-139 MMT: LEFT KNEE EXT 4-4+/5, L KNEE FLX 4/5, L HIP FLX 4-4+/5 , L HIP ABD 4/5, L HIP ADD 4/5 , L HIP EXT 4/5 TTP: LEFT KNEE MEDIAL JT LINE 1-24, L KNEE LATERAL JT LINE 0-/4 GAIT: WFL ON LEVEL TERRAIN w/o A.D. Assessment Progress Assessment Progressing as Expected Assessment Notes SIGNIFICANT IMPROVEMENTS IN LEFT KNEE/LE STRENGTH, ROM, AND GAIT Patient goals met STG'S 09/29 LTG'S 07/01 Goals Not Met LTG'S 07/01 Plan Plan Pt to continue w/skilled P.T. to make further improvements in ROM, strength, TTP, and gait to allow for optimal function Frequency of Therapy 2-3X/WK Duration of therapy 4-6WKS Time and Billing Re-Eval Time 12 Re-Eval Billing Units 1 PHYSICIAN CERTIFICATION: I certify the specified therapy services for Raghav Cruz are required, authorized, and reviewed every 30 days.
--- NOTE | 2023-07-06 08:54 | HMH.RHREAS ---
Rehab Reassessment Rehab OP Re-assessment Start: 03/26/23 13:28 Freq: Status: Active Protocol: Document 07/06/23 07:56 MALIK (Rec: 07/06/23 08:53 MALIK [id number]) E-signed By Jorge Yeboah, PT Lower Extremity Functional Index Activities Today, do you or would you have any difficulty at all with: a.Any of your usual work, housework or A little bit of difficulty school activities b. Your usual hobbies, recreational or Extreme difficulty or unable sporting activities to perform activity c. Getting into or out of the bath A little bit of difficulty d. Walking between rooms No difficulty e. Putting on your shoes or socks A little bit of difficulty f. Squatting Moderate difficulty g. Lifting an object, like a bag of Moderate difficulty groceries from the floor h. Performing light activities around No difficulty your home i. Performing heavy activities around Moderate difficulty your home j. Getting into or out of a car No difficulty k. Walking 2 blocks A little bit of difficulty l. Walking a mile Moderate difficulty m. Going up or down 10 stairs (about 1 A little bit of difficulty flight of stairs) n. Standing for 1 hour Moderate difficulty o. Sitting for 1 hour A little bit of difficulty p. Running on even ground Moderate difficulty q. Running on uneven ground Quite a bit of difficulty r. Making sharp turns while running fast Quite a bit of difficulty s. Hopping A little bit of difficulty t. Rolling over in bed No difficulty LEFI Score Lower Extremity Functional Index Score 51 Rehab Re-assessment Subjective Subjective Pt reports no pain and no problems this am, however, reports 'couple days ago it had that bruised feeling again , but much better now.' Pt reports 5/10 pain in left knee w/'bruised' feeling, and 1/10 on VAS this am, feels '75% better' overall since I eval. Objective Objective Notes AROM: LEFT KNEE FLX 0-133 AAROM: LEFT KNEE FLX 0-135 PROM: LEFT KNEE FLX 0-141 MMT: LEFT KNEE EXT 4+/5, L KNEE FLX 4+-5/5, L HIP FLX 4+- 5/5, L HIP ABD 4+/5, L HIP ADD 5/5, L HIP EXT 4+/5 TTP: LEFT KNEE MEDIAL JT LINE 0-1/4, L KNEE LATERAL JT LINE 0-02/25 GAIT: WFL ON LEVEL TERRAIN and unlevel terrain LEF: 51 VS 13 ON I EVAL Assessment Progress Assessment Progressing as Expected Assessment Notes pt continues to progress w/ strength, ROM, and gait; translating to increased overall function Patient goals met STG'S 09/29 LTG'S 08/31 Goals Not Met LTG'S 05/01 Plan Plan Pt to continue w/skilled P.T. to make further improvements in ROM, strength, TTP, and gait to allow for optimal function Frequency of Therapy 1-2x/wk Duration of therapy 4-6wks Time and Billing Re-Eval Time 12 Re-Eval Billing Units 1 PHYSICIAN CERTIFICATION: I certify the specified therapy services for Raghav Cruz are required, authorized, and reviewed every 30 days.
--- NOTE | 2023-08-12 10:05 | HMH.RHREAS ---
Rehab Reassessment Rehab OP Re-assessment Start: 03/26/23 13:28 Freq: Status: Active Protocol: Document 08/12/23 07:55 [email or web address] (Rec: 08/12/23 08:47 MALIK [id number]) E-signed By Jorge Yeboah, PT Rehab Re-assessment Subjective Subjective Pt reports return work on 08/08 full-duty, and reports increased left knee swelling and pain since return to that level of prolonged standing and walking. Pt reports 2/10 left knee pain at rest and 6-7 /10 left knee pain following yesterday's 12 hr shift. Pt reports no issue w/strength or instability, 'it just hurts when I've been up on it that long.' Objective Objective Notes AROM: LEFT KNEE FLX 0-129 AAROM: LEFT KNEE FLX 0-131 PROM: LEFT KNEE FLX 0-134 MMT: LEFT KNEE EXT 4+-5/5, L KNEE FLX 4+-5/5, L HIP FLX 4+- 5/5, L HIP ABD 4+/5, L HIP ADD 5/5, L HIP EXT 4+/5 TTP: LEFT KNEE MEDIAL JT LINE 2-3/4, L KNEE LATERAL JT LINE 0-1/4 GAIT: WFL ON LEVEL TERRAIN and unlevel terrain Assessment Progress Assessment Progressing as Expected Assessment Notes improved left quad strength since last reassessment, however, pt currently exhibiting slight exacerbation d/t return to work w/ decreased ROM and increased TTP Patient goals met STG'S 09/29 LTG'S 08/31 Goals Not Met LTG'S 05/01 Plan Plan Pt to continue w/skilled P.T. to make further improvements in ROM, strength, TTP, and gait to allow for optimal function. Pt will exhaust annual allowance for PT visits following next weeks appointments, and will then plan to D/C to [facility] wellness center for continuation of TA' s and TE's. Pt also to discuss w/surgeon following tomorrow' s 12hr shift the potential to scale back from full-duty to shorter hrs d/t recent exacerbation of left knee s/s. Frequency of Therapy 2X/WK Duration of therapy 1WK Time and Billing Re-Eval Time 14 Re-Eval Billing Units 1 PHYSICIAN CERTIFICATION: I certify the specified therapy services for Raghav Gallegos Brown are required, authorized, and reviewed every 30 days.
== END 2023-08-18 09:05 | disposition home or self-care (01) ==
LOC: PT 09:00
PROVIDERS: PCP Family Medicine; Visit Provider Orthopaedic Surgery
DX: M25.562 Pain in left knee (principal); S83.512A Sprain of anterior cruciate ligament of left knee, initial encounter; Z98.890 Other specified postprocedural states
CPT/HCPCS: 20560; 97010; 97014; 97016; 97035; 97110; 97140; 97163; 97164; 97530; 97535; G0283

== ENCOUNTER 2024-02-07 04:11 | Outpatient (CLI) | payer OTHER, SELFPAY ==
[2024-02-07 04:21] LABS: Coronavirus 19, PCR Not Detected (NotDetected); Influenza A, PCR Not Detected (NotDetected); Influenza B, PCR Not Detected (NotDetected)
[2024-02-07 04:42] LABS: Strep Scrn Group A (Rapid) Negative (Negative)
== END 2024-02-07 23:59 | disposition home or self-care (01) ==
PROVIDERS: PCP Family Medicine; Visit Provider Emergency Medicine
DX: R05.8 Other specified cough (principal); R07.0 Pain in throat
CPT/HCPCS: 87430; 87636

== ENCOUNTER 2024-11-04 14:01 | Emergency (ER) | payer OTHER, SELFPAY ==
--- OUTSIDE RECORDS SUMMARY | 2003-09-06 | XMS_ITS | Encounter Summary ---
Author Organization [facility] Address [address] [place] [id number] Care Team Providers Care Manufacturing Quality Manager Name Role Phone Unavailable Primary Care Provider Unavailabl e Encounter Details Date Type Department Care Team (Late st Contact Info) Description 09/06/2003 Hospital Encounter [facility] Division of Cardiology [address] [place] [phone] Social History Tobacco Use Types Packs/Day Years Used Date Smoking Tobacco: Never Assessed Sex and Gender Information Value Date Recorded Sex Assigned at Not on file Legal Sex Male 5:16 AM EST Gender Identity Not on file Sexual Orientation Not on file documented as of this encounter Plan of Treatment Not on file documented as of this encounter Visit Diagnoses Not on filedocumented in this encounter
[2024-11-04] VITALS (20 sets, daily range): BP systolic 122–171; BP diastolic 81–116; PULSE 84–131; RESP 11–22; TEMP 37.1–37.6; O2SAT 94–99; BMI 29.1
--- NOTE | 2024-11-04 13:58 | ECG_ITS ---
APPROVED REPORT Exam: Resting ECG HR:139 bpm ECG Measurements Heart Rate 139 AXES WY 130 P 98 QRSd 270 QRS -83 QT 313 T 0 QTc 394 Conclusion SINUS TACHYCARDIA INTRAVENTRICULAR CONDUCTION DELAY [130+ ms QRS DURATION] ABNORMAL ECG UNCONFIRMED REPORT Supraventricular tachycardia Electronically signed by : JO ESPAÑA, 11/07/2024 07:01:37
--- NOTE | 2024-11-04 14:05 | XR_ITS ---
PROCEDURE INFORMATION: Exam: XR Chest Exam date and time: 11/04/2024 2:18 PM Age: 33 years old Clinical indication: Pain; Chest pressure; Prior surgery; Surgery date: 6+ months; Surgery type: Ablation in 2010; Additional info: Cp x today, PT felt like he was going to pass out TECHNIQUE: Imaging protocol: Radiologic exam of the chest. Views: 1 view. COMPARISON: CR XR CHEST PORTABLE 07/10/2023 12:29 PM FINDINGS: Lungs: Unremarkable. No consolidation. Pleural spaces: Unremarkable. No pleural effusion. No pneumothorax. Heart/Mediastinum: Unremarkable. No cardiomegaly. Bones/joints: Unremarkable. IMPRESSION: No acute findings.
--- NOTE | 2024-11-04 14:06 | ED_ITS ---
<Statement entered by Jimenez Velazquez MD - 11/04/24 23:35> I was consulted by the MARICEL, and we discussed the complexity of the problems being addressed. I approve the treatment and management plan for this patient's care in the emergency department, thus performing a substantive portion of the medical decision making. Jimenez Velazquez MD Discharge Plan Disposition Patient Disposition: Home, Self-Care Prescriptions Prescriptions: New bisoprolol fumarate 5 mg tablet 5 mg PO DAILY 30 Days Qty: 30 0RF No Action atorvastatin 20 mg tablet 20 mg PO DAILY Qty: 90 3RF bisoprolol fumarate 5 mg tablet 5 mg PO DAILY Qty: 90 1RF omeprazole 40 mg capsule,delayed release(DR/EC) See Rx Instructions .ROUTE .COMPLEX Qty: 90 3RF Dose Instruction: Take 1 capsule by mouth once daily Rx Instructions: Take 1 capsule by mouth once daily Referrals Follow up/Referrals: Sanju Castillo MD [Staff Physician, Cardiology] - See instructions Provider,MD Alicia [Primary Care Provider, Medical] - See instructions Activity Restrictions/Add. Instructions Additional Instructions/Restrictions: Today you were evaluated in the emergency department for chest pain. You were given diltiazem in the ED. You are also given an appointment with cardiology. Please take the medication that we sent to the pharmacy as directed. Return to the emergency department for worsening of condition. Clinical Impressions Clinical Impression: Sustained SVT Instructions Patient Instructions: DI for Paroxysmal Supraventricular Tachycardia Print Language Print Language: Arabic Discharge ED Provider: Jimenez Velazquez HPI General Chief Complaint: Chest Pain Stated Complaint: cp Time Seen by Provider: 11/04/24 14:04 Mode of Arrival: Ambulatory Source of Information: Patient Description of Symptoms (Recalled from ER Triage Doc. by RN): pt presents to ED with c/o possible SVT. pt with history of high heart rate. has been cardioverted before. pt reports that he ate a hotdog. stated that he felt that he was having an esophageal spasm but then become short of breath. History of Present Illness HPI narrative: patient is a 33-year-old male PMHx history of sustained SVT, hyperlipidemia, history of palpitations who presents to the ED for complaints of centrally located chest pain and palpitations. Patient states he was sitting watching a football game when he had centrally located, stabbing chest pain. Denies radiation into his back or neck. Patient has been in SVT multiple times in the past, states adenosine usually does not work however diltiazem works for him. Denies any recent illness. Related Data Previous Rx's ?Medication ?Instructions ?Recorded atorvastatin 20 mg tablet 20 mg PO DAILY #90 tabs 10/15 bisoprolol fumarate 5 mg tablet 5 mg PO DAILY #90 tabs 09/27/23 omeprazole 40 mg capsule,delayed See Rx Instructions . Route 10/26/23 release .COMPLEX #90 caps bisoprolol fumarate 5 mg tablet 5 mg PO DAILY 30 days #30 tabs 11/04/24 Allergies Allergy/AdvReac Type Severity Reaction Status Date / Time No Known Allergies Allergy Verified 06/11/24 18:05 [facility] Disclaimer: The information contained in this section may have been updated after the patient was seen, as this information can be updated by other users. Medical History Family history of coronary artery disease Asthma Hyperlipidemia Hypertension Surgical History H/O cardiac radiofrequency ablation History of cholecystectomy Social History Smoking Status: Never smoker alcohol intake: never current occupational status: employed Travel in the last 8 weeks?: None household members: family Have you lived/traveled outside US in past 30 days?: No Contact w/someone who lives/traveled outside US past 30 days?: No Exposure to someone with infectious disease in past 14 days?: No Do you have a fever (greater than 100.4 F or 38 C)?: No Have you tested positive for COVID-19?: No Exposed to someone with COVID-19 in past 14 days?: No Do you have a sore throat?: No Do you have a cough?: No Do you have any weakness?: No Do you have any diarrhea?: No Are you experiencing any unusual bleeding?: No Do you have any muscle aches/pain?: No Do you have any abdominal pain?: No Are you experiencing loss of taste or smell?: No Other Medical History Have you received the Flu Vaccine for this season: No Have you received the Pneumonia Vaccine: No ROS Obtained: Yes Systems reviewed as appropriate & no additional complaints except as documented Physical Exam General General appearance: alert Head Head exam: atraumatic Eye Eye exam: Present PERRL Chest Chest inspection: Present normal inspection Respiratory Respiratory exam: Present normal lung sounds bilaterally Cardiovascular Cardiovascular exam: Present tachycardia Abdominal Exam Abdominal exam: Present soft Back Exam Back exam: Present full ROM Neurological Exam Neurological exam: Present alert, oriented X3 and normal gait Skin Skin exam: Present warm HEART Score HEART Score HEART Score assessment performed?: Yes History (anamnesis): Slightly suspicious ECG: Normal Age: <45 years Risk factors: 1-2 risk factors Troponin: </= normal limit HEART Score: 1 Critical Care Critical Care Time Critical Care Time: No Medical Decision Making Alex Inquiry Pt receiving controlled substance: No Vital Signs Vital Signs: 11/04/24 14:01 11/04/24 14:05 11/04/24 14:09 Temperature 99.6 F Temperature Source Oral Pulse Rate 126 H 129 H Pulse Rate [Left Radial] 131 H Respiratory Rate 19 13 12 Blood Pressure 146/100 H Blood Pressure [Right Arm] 171/116 H Blood Pressure Mean Blood Pressure Mean [Right Arm] 134 02 Sat by Pulse Oximetry 98 97 98 Oxygen Delivery Method Room Air Room Air 11/04/24 14:11 11/04/24 14:15 11/04/24 14:30 Temperature Temperature Source Pulse Rate 105 H 108 H Pulse Rate [Left Radial] Respiratory Rate 14 15 Blood Pressure 122/81 137/85 127/87 Blood Pressure [Right Arm] Blood Pressure Mean 95 Blood Pressure Mean [Right Arm] 02 Sat by Pulse Oximetry 99 94 L Oxygen Delivery Method 11/04/24 14:45 11/04/24 15:00 11/04/24 15:15 Temperature Temperature Source Pulse Rate 108 H 105 H 113 H Pulse Rate [Left Radial] Respiratory Rate 13 20 22 Blood Pressure 136/92 H 142/93 H 128/87 Blood Pressure [Right Arm] Blood Pressure Mean Blood Pressure Mean [Right Arm] 02 Sat by Pulse Oximetry 94 L 97 95 Oxygen Delivery Method 11/04/24 15:30 11/04/24 15:45 11/04/24 16:00 Temperature Temperature Source Pulse Rate 99 H 91 H 96 H Pulse Rate [Left Radial] Respiratory Rate 18 13 Blood Pressure 138/96 H 145/100 H 157/103 H Blood Pressure [Right Arm] Blood Pressure Mean 115 Blood Pressure Mean [Right Arm] 02 Sat by Pulse Oximetry 98 98 98 Oxygen Delivery Method 11/04/24 16:15 11/04/24 16:30 11/04/24 16:45 Temperature Temperature Source Pulse Rate Pulse Rate [Left Radial] Respiratory Rate 16 17 11 L Blood Pressure 153/100 H 145/101 H 143/92 H Blood Pressure [Right Arm] Blood Pressure Mean Blood Pressure Mean [Right Arm] 02 Sat by Pulse Oximetry Oxygen Delivery Method 11/04/24 17:00 11/04/24 17:15 11/04/24 17:30 Temperature Temperature Source Pulse Rate Pulse Rate [Left Radial] Respiratory Rate 16 16 19 Blood Pressure 141/103 H 136/94 H 140/93 H Blood Pressure [Right Arm] Blood Pressure Mean Blood Pressure Mean [Right Arm] 02 Sat by Pulse Oximetry Oxygen Delivery Method 11/04/24 17:45 11/04/24 18:03 Temperature 98.8 F Temperature Source Pulse Rate 84 Pulse Rate [Left Radial] Respiratory Rate 13 15 Blood Pressure 139/96 H 139/96 H Blood Pressure [Right Arm] Blood Pressure Mean Blood Pressure Mean [Right Arm] 02 Sat by Pulse Oximetry Oxygen Delivery Method Lab Data Labs: Lab Results 11/04/24 14:03: WBC 7.3, RBC 4.89, Hgb 15.8, Hct 44.2, MCV 90.4, MCH 32.3 H, M CHC 35.7 H, RDW 12.3, Plt Count 227, MPV 10.2, Neut % (Auto) 55.4, Lymph % (Auto) 33.0, Beadle % (Auto) 9.7 H, Eos % (Auto) 0.8, Baso % (Auto) 0.7, Neut # (Auto) 4.1, Lymph # (Auto) 2.4, Beadle # (Auto) 0.7, Eos # (Auto) 0.1, Baso # (Auto) 0.1, Sodium 140, Potassium 3.9, Chloride 101, Carbon Dioxide 25, Anion Gap 17.9 H, BUN 15, Creatinine 1.10, Estimated Creat Clear 131, Estimated GFR 77, Est GFR ( Amer) 93, Glucose 155 H, Calcium 9.9, Total Bilirubin 0.6, AST 51, ALT 50, Alkaline Phosphatase 84, Troponin I < 0.01, Total Protein 8.2, A lbumin 5.1 H, Globulin 3.1, Albumin/Globulin Ratio 1.6 11/04/24 16:56: Troponin I < 0.01 11/04/24 14:03 11/04/24 14:03 Response Orders (Tests/Meds): ED MEDICATIONS Discontinued Medications Generic Name Dose Route Start Last Admin Trade Name Jaime PRN Reason Stop Dose Admin Diltiazem HCl 20 mg 11/04/24 14:04 11/04/24 14:11 Diltiazem 25mg/5ml Vial IV 11/04/24 14:05 20 mg ONCE ONE Administration Sodium Chloride 1,000 mls @ 999 mls/hr 11/04/24 14:04 11/04/24 15:28 Sod Chlor 0.9% 1000ml Bag IV 11/04/24 15:04 Infused .Q1H1M ONE Infusion ORDERS Category Date Time Status CXR --portable [XR chest portable] Stat Exams 11/04/24 14:05 Completed CBC w/Auto Diff [Complete Blood Count Auto Diff] Stat Lab 11/04/24 14:03 Completed CMP [Comprehensive Metabolic Panel] Stat Lab 11/04/24 14:03 Completed Trop I [Troponin I] Stat Lab 11/04/24 14:03 Completed Troponin I Q3H Lab 11/04/24 16:56 Completed MDM Narrative Medical Decision Narrative: In summary, patient is a 33-year-old male PMHx history of sustained SVT, hyperlipidemia, history of palpitations who presents to the ED for complaints of centrally located chest pain and palpitations. Patient states he was sitting watching a football game when he had centrally located, stabbing chest pain. Denies radiation into his back or neck. Patient has been in SVT multiple times in the past, states adenosine usually does not work however diltiazem works for him. Denies any recent illness. Spouse at bedside who provides additional history. Upon initial evaluation patient is alert, oriented and cooperative. Tachycardia noted, neurovascular status intact. Discussed with patient we will proceed with normal saline and diltiazem 20 mg IV push. Patient denies fever, headache, chills, back pain, abdominal pain, vomiting. Differential diagnosis include SVT, sinus tachycardia, infectious process, ACS, dissection, pulmonary embolism, among others. CBC unremarkable for any leukocytosis, stable H&H. CMP unremarkable for any infectious process. First troponin < 0.01. 1 dose of IVP diltiazem and normal saline, patient converted to sinus rhythm. He is currently not having chest pain at this time. Second troponin < 0.01. Upon reassessment, patient's condition has improved. He is no longer experiencing chest pain. Patient was given a cardiology appointment for Wednesday at 0900. His medication was sent to the pharmacy. Patient received a text confirmation about his medication. We discussed return precautions to the ED and patient verbalized understanding. He is hemodynamically stable and ambulatory upon leaving the ED without difficulty.
--- OUTSIDE RECORDS SUMMARY | 2024-11-04 14:07 | XMS_ITS | Continuity of Care Document ---
Author Organization [facility]. If a dditional information is needed, contact Health Information Management at [phone] Address [address] [place] [address] Phone Care Team Providers Care Permastone Applicator Name Role Phone Unavailable Unavailable Unavailable Unavailable Unavailable Unavailable Problems Discharge from penis Onset:25-Feb-2019 Guzman Mccloud Status:Acute Exposure to sexually transmi ssible disorder Onset:25-Feb-2019 Guzman Mccloud Status:Acute History of clinical finding in subject Onset:25-Feb-2019 Guzman Mccloud Status:Acute Functional Status Functional finding 25-Feb-2019 Functional finding 25-Feb-2019 Functional finding 25-Feb-2019 Social History Smoking Status Smokes tobacco daily Recorded: 25-Feb-2019
--- OUTSIDE RECORDS SUMMARY | 2024-11-04 14:08 | XMS_ITS | Clinical Summary ---
Author Organization [facility] Address [address] [place] [address] Care Team Providers Care District Operations Manager Name Role Phone Unavailable Primary Care Provider Unavailabl e Social History Tobacco Use Types Packs/Day Years Used Date Smoking Tobacco: Never Assessed Abuse Screen Answer Date Recorded Unsafe at Home or Work/School Not on file Feels Threatened by Someone? Not on file 12/2023 Does Anyone Keep You from Co ntacting Others or Doint Things Outside the Home? Not on file 03/04/2023 Physical Sign of Abuse Present Not on file 0 03/04/2023 Housing Stability Answer Date Recorded Current Living Arrangements Not on file 02/22 Potentially Unsafe Housing Conditions Not on bulmaro e 03/04/2023 Family and Community Support Answer Sameer e Recorded Help with Day-to-Day Activities Not on file 03/04/2023 Lonely or Isolated Not on file 03/04/2023 Employment Answer Date Recorded Do you want help finding or keeping work or a eliseo b? Not on file 03/04/2023 Disabilities Answer Date Recorded Concentrating, Remembering, or Making Decisions Difficulty Not on file 03/04/2023 Doing Errands Independently Difficulty Not on fi le 03/04/2023 Education Answer Date Recorded Help with school or training? Not on file Preferred Language Not on file 03/04/2023 Sex and Gender Information Value Date Recorded Sex Assigned at Not on file Legal Sex Male 1:54 PM EST Gender Identity Not on file Sexual Orientation Not on file Plan of Treatment Health Maintenance Due Date Last Done Comments ANNUAL PHYSICAL 1989 HEPATITIS C SCREENING 1989 TDAP/TD VACCINES (1 - Tdap) 2008 COVID-19 Vaccine (2023-2 5 season) 2024 INFLUENZA VACCINE 11/22/2024 Pneumococcal Vaccine 0-49 Aged Out No longer eligible based on patient's age to complete this topic
--- OUTSIDE RECORDS SUMMARY | 2024-11-04 14:08 | XMS_ITS | Clinical Summary ---
Author Organization [facility] Address [address] [place] [address] Care Team Providers Care Supervisor Winding Department Name Role Phone Unavailable Primary Care Provider Unavailabl e Source Comments [facility] is fully rolled out with thefollowing exceptions:General Clinical Research [facility] Social History Tobacco Use Types Packs/Day Years Used Date Smoking Tobacco: Never Assessed Sex and Gender Information Value Date Recorded Sex Assigned at Not on file Legal Sex Male 5:16 AM EST Gender Identity Not on file Sexual Orientation Not on file Plan of Treatment Health Maintenance Due Date Last Done Comments MMR IMMUNIZATION (1 of 1 - S tandard series) 1990 DTAP/Tdap/Td IMMUNIZATION (1 - Tdap) 1996 VARICELLA IMMUNIZATION (1 of 2 - 13+ 2-dose series) 2002 HEPATITIS B IMMUNIZATION (1 of 3 - 19+ 3-dose series) 2008 HPV IMMUNIZATION (1 - 3-dose SCDM series) 2016 AMB SEASONAL FLU VACCINE (#1) 10/23/2024 COVID-19 Vaccine (2023-2 5 season) 2024 HIB IMMUNIZATION Aged Out No longer e ligible based on patient's age to complete this topic IPV IMMUNIZATION Aged Out No longer e ligible based on patient's age to complete this topic MCV4 IMMUNIZATION Aged Out No longer eligible based on patient's age to complete this topic MENINGOCOCCAL B VACCINE Aged Out No l onger eligible based on patient's age to complete this topic PNEUMOCOCCAL IMMUNIZATION Aged Out No longer eligible based on patient's age to complete this topic Respiratory Syncytial Virus (RSV) <20mo Aged Out No longer eligible b ased on patient's age to complete this topic
--- OUTSIDE RECORDS SUMMARY | 2024-11-04 14:09 | XMS_ITS | Patient Health Record ---
[facility] Address [address] [place] [id number] Care Team Providers Care Director Of Vital Statistics Name Role Phone Cali Owen Primary Care Provider Bettina Chang Unavailable [phone] Allergies Allergen (clinical drug ingredient) Drug/Non Drug Allergy documented on EMR Reaction Allergy Type Onset Date Status omeprazole Omeprazole hives Drug Allergy Activ e Medications Medication SIG (Take, Route, Frequency, Duration) Notes Start Date End Date Status hydrOXYzine HCl 25 MG 1 tab(s) orally tid prn Not-Taking Oyyxzrufza-ZXDN-Joa feine 50-325-40 MG 1 orally tid prn Not-T aking Cefdinir 300 MG 1 cap(s) orally bid; Duration: 10 day(s) 07/22/2017 Active Bisoprolol Fumarate 5 MG 1/2 orally once a day Active RANITIDINE 150 MG 1 TAB(S) ORALLY 2 TIMES A DAY *Please review for potential replacement for e-prescription and drug interaction check* Active Immunizations Vaccine Route Administration Date Status Comme nts MENINGOCOCCAL VACCINE, SC IM Intramuscular 10/11/2006 Admi nistered Problems Problem Type SNOMED Code ICD Code Onset Dates Problem Status W/U Status Risk Notes Problem Anxiety disorder (227211787) Anxiety disorder (300.00) Active confirmed Problem Cardiac dysrhythmia (085627543) Cardiac dysrhythmia NOS (427.9) Active confirmed Problem Headache (90157360) Headache (784.0) Active confirmed Plan Of Treatment No Information Insurance Providers Payer Name Payer Address Payer Phone Subscriber Number Group Number Insured Name Patient Relationship to Insured Coverage Start Date Coverage End Date [employer] [address] [place] [address] [id number] DAVID CRUZ Self - patient is the insured Medical (General) History Medical History History ICD Code allergic rhinitis heart cath with ablation treatment 2011, Dr. Chavez, Surgical History Surgery Date(Month/Year) wisdom teeth 05/2007 heart cath 2011 galbladder surgery 2014 Hospitalization History Reason Date(Month/Year) [facility] ER x-ray on left ankle, sprained 02/22 09/29 heart cath with ablation treatment 2011 heart problems 2010 ER visit due to anxiety and migraines 2013
[2024-11-04] MEDS: 0.9 % SODIUM CHLORIDE 1000ML 1,000 ML 999 ML IV (14:11)
--- NOTE | 2024-11-04 14:16 | ECG_ITS ---
APPROVED REPORT Exam: Resting ECG HR:99 bpm ECG Measurements Heart Rate 99 AXES NE 206 P 55 QRSd 110 QRS 51 QT 316 T 46 QTc 372 Conclusion SINUS RHYTHM INCOMPLETE RIGHT BUNDLE BRANCH BLOCK [90+ ms QRS DURATION, TERMINAL R IN V1/V2, 40+ ms S IN I/aVL/V4/V5/V6] BORDERLINE ECG UNCONFIRMED REPORT Normal sinus rhythm. No ST elevation or depression. Electronically signed by : JO ESPAÑA, 11/07/2024 07:00:59
[2024-11-04 14:19] LABS: Albumin Level 5.1 g/dl (3.5-5.0); Chloride 101 mmol/L (98-107); Sodium 140 mmol/L (136-145)
[2024-11-04 14:20] LABS: Potassium 3.9 mmoL/L (3.5-5.1)
[2024-11-04 14:22] LABS: Alanine Aminotransferase 50 U/L (12-78); Alkaline Phosphatase 84 U/L (38-126); Anion Gap 17.9 mEq/L (5-15); Aspartate Amino Transferase 51 U/L (17-59); Bilirubin,Total 0.6 mg/dl (0.2-1.3); Blood Urea Nitrogen 15 mg/dl (9-20); Carbon Dioxide 25 mmol/L (22.0-30.0); Creatinine Clearance Estimated 131 mL/min (50-200); Creatinine,Serum 1.10 mg/dl (0.66-1.25); Estimated Glomerular Filt Rate 77 ml/min (>60); GFR (African American) 93 ML/MIN (>60)
[2024-11-04 14:23] LABS: Albumin/Globulin Ratio 1.6 (1.1-1.8); Calcium 9.9 mg/dl (8.4-10.2); Globulin 3.1 g/dL (1.3-3.2); Glucose 155 mg/dl (74-100); Total Protein,Serum 8.2 g/dl (6.3-8.2)
[2024-11-04 14:25] LABS: Hematocrit 44.2 % (42.0-52.0); Hemoglobin 15.8 g/dL (14.1-18.0); Immature Granulocytes % 0.4 %; Mean Corpuscular HGB Conc 35.7 g/dL (31.8-35.4); Mean Corpuscular Hemoglobin 32.3 pg (27.0-31.2); Mean Corpuscular Volume 90.4 fl (80-94); Nucleated Red Blood Cells % 0 %; Platelet Count 227 K/mm3 (142-424); Red Blood Count 4.89 M/mm3 (4.60-6.20); Red Cell Distribution Width-SD 40.0 fL; White Blood Count 7.3 K/mm3 (4.8-10.8)
[2024-11-04 14:40] LABS: Troponin I < 0.01 ng/ml (0.00-0.034)
--- NOTE | 2024-11-04 17:40 | PC.NURSE ---
I spoke with Ewa in the lab inquiring about the pts second troponin. She states it has 3min left.
[2024-11-04 17:47] LABS: Troponin I < 0.01 ng/ml (0.00-0.034)
== END 2024-11-04 18:05 | disposition home or self-care (01) ==
PROVIDERS: Nurse Practitioner; Emergency Provider Student in an Organized Health Care Education/Training Program
DX: I47.10 Supraventricular tachycardia, unspecified (principal); E78.5 Hyperlipidemia, unspecified
CPT/HCPCS: 71045; 80053; 84484; 85025; 93005; 96365; 99285; J7030

== ENCOUNTER 2024-11-06 09:27 | Outpatient (CLI) | payer OTHER, SELFPAY ==
--- OUTSIDE RECORDS SUMMARY | 2003-09-06 | XMS_ITS | Encounter Summary ---
Author Organization [facility] Address [address] [place] [address] Care Team Providers Care Wharfinger Chief Name Role Phone Unavailable Primary Care Provider Unavailabl e Encounter Details Date Type Department Care Team (Late st Contact Info) Description 09/06/2003 Hospital Encounter [facility] Division of Cardiology [address] [place] [phone] Social History Tobacco Use Types Packs/Day [...]
--- OUTSIDE RECORDS SUMMARY | 2024-11-06 09:16 | XMS_ITS | Continuity of Care Document ---
Author Organization [facility]. If a dditional information is needed, contact Health Information Management at [phone] [address] [place] [address] Phone Care Team Providers Care Bull Driver Name Role Phone Unavailable Unavailable Unavailable Unavailable Unavailable Unavailable Problems Exposure to sexually transmi ssible disorder Onset:25-Feb-2019 Guzman Mccloud Status:Acute Discharge from penis Onset:25-Feb-2019 Walker Dixon Status:Acute History of clinical finding in subject Onset:25-Feb-2019 Walker Dixon Status:Acute Functional Status Functional finding 25-Feb-2019 Functional finding 25-Feb-2019 Functional finding 25-Feb-2019 Social History Smoking Status Smokes tobacco daily Recorded: 25-Feb-2019
--- OUTSIDE RECORDS SUMMARY | 2024-11-06 09:49 | XMS_ITS | Clinical Summary ---
Author Organization [facility] Address [address] [place] [address] Care Team Providers Care Order Clerk Name Role Phone Unavailable Primary Care Provider [...]
--- OUTSIDE RECORDS SUMMARY | 2024-11-06 09:49 | XMS_ITS | Clinical Summary ---
Author Organization [facility] Address [address] [place] [address] Care Team Providers Care Client Specialist Name Role Phone Unavailable Primary Care Provider Unavailabl e Source Comments [facility] is fully rolled out with thefollowing exceptions:General Clinical Research [facility] Social History Tobacco Use Types Packs/Day [...]
[2024-11-06 11:07] LABS: Free Thyroxine Index 1.9 ug/dL (5.93-13.13); T4 (Thyroxine) 5.1 ug/dl (5.53-11.0); Triiodothryronine (T3) Uptake 38 % (23.5-40.5)
[2024-11-06 11:20] LABS: Thyroid Stimulating Hormone 0.96 uIU/mL (0.465-4.68)
== END 2024-11-06 23:59 | disposition home or self-care (01) ==
LOC: LAB 09:28
PROVIDERS: PCP Family Medicine; Visit Provider Nurse Practitioner
DX: I47.10 Supraventricular tachycardia, unspecified (principal); E78.5 Hyperlipidemia, unspecified; Z82.49 Family history of ischemic heart disease and other diseases of the circulatory system
CPT/HCPCS: 36415; 84436; 84443; 84479; 93270